=== PATIENT | female | born 1940 | race Caucasian/White ===

== ENCOUNTER 2016-12-11 11:47 | Inpatient (IN) | payer MEDICARE ==
[2016-12-11 12:46] LABS: Basophils # (A) 0.1 k/uL (0-0.2); Basophils % (A) 0 %; CHCM 33.4; Eosinophils # (A) 0.1 k/uL (0-0.7); Eosinophils % (A) 1 %; HCT 43.3 % (34.0-46.0); HDW 2.22; HGB 13.7 gm/dL (11.4-16.0); Luc % (Auto) 1; Lymphocytes # (A) 1.3 k/uL (1.0-4.8); Lymphocytes % (A) 11 %; MCH 30.4 pg (25.0-35.0); MCHC 31.6 g/dL (31.0-37.0); MCV 96.4 fL (80.0-100.0); Mean Platelet Volume 7.9; Monocytes # (A) 0.6 k/uL (0-1.0); Monocytes % (A) 5 %; Neutrophils % (A) 83 %; RBC 4.49 m/uL (3.80-5.40); RDW 13.3 % (11.5-15.5)
[2016-12-11 12:56] LABS: ALT 90 U/L (9-52); AST 69 U/L (14-36); Alkaline Phosphatase 71 U/L (38-126); Anion Gap 12 mmol/L; Blood Urea Nitrogen 26 mg/dL (7-17); Calcium 9.7 mg/dL (8.4-10.2); Carbon Dioxide 25 mmol/L (22-30); Chloride 106 mmol/L (98-107); Glucose 163 mg/dL (74-99); Magnesium 1.9 mg/dL (1.6-2.3); Non-African American GFR(MDRD) >60 (>60 ml/min/1.73 sqM); Sodium 143 mmol/L (137-145); Total Bilirubin 0.9 mg/dL (0.2-1.3); Total Protein 6.5 g/dL (6.3-8.2)
[2016-12-11 13:01] LABS: INR 1.1 (<1.1); Partial Thromboplastin Time 21.7 sec (22.0-30.0); Prothrombin Time 11.4 sec (9.0-12.0)
--- NOTE | 2016-12-11 13:02 | XR ---
EXAMINATION TYPE: XR chest 1V portable DATE OF EXAM: 12/11/2016 12:57 PM COMPARISON: NONE HISTORY: Dysrhythmia TECHNIQUE: Single frontal view of the chest is obtained. FINDINGS: There is no focal air space opacity, pleural effusion, or pneumothorax seen. The cardiac silhouette size is within normal limits. The osseous structures are intact. The heart is enlarged. IMPRESSION: 1. Cardiomegaly. Subsegmental changes at the right lung base may be technical. Short-term follow-up P A and lateral views the chest could be obtained to exclude infiltrate.
[2016-12-11 13:21] LABS: Creatine Kinase MB 1.5 ng/mL (0.0-2.4)
[2016-12-11 13:38] LABS: Troponin I 0.15 ng/mL (0.000-0.034)
[2016-12-11] MEDS ORDERED: NITROGLYCERIN SL TABS 0.4 MG TAB SUBLINGUAL PRN (14:52)
--- NOTE | 2016-12-11 14:52 | ED ---
Arrhythmia/Palpitations HPI - General Chief Complaint: Arrhythmia/Palpitations Stated Complaint: abn ekg Time Seen by Provider: 12/11/16 11:58 Source: patient, family, RN notes reviewed Mode of arrival: wheelchair Limitations: no limitations - History of Present Illness Initial Comments: This patient is 76-year-old woman who presents with complaint of dyspnea that is been getting worse over a number of days. Patient is planning a trip to [place] and states that her finally convinced her to see their physician before going. In the clinic the patient had an EKG that reported to show atrial fibrillation. The patient has felt that times that her heart was beating rapidly. Patient is denying chest pain here. MD Complaint: rapid heart beat -: days(s) Context: occurred during rest Arrhythmia History: other (None) Associated Symptoms: shortness of breath - Related Data Home Medications Medication Instructions Recorded Confirmed Alendronate Sodium 70 mg PO TU 12/11/16 12/11/16 Atorvastatin Calcium [Lipitor] 10 mg PO DAILY 12/11/16 12/11/16 Calcium Carbonate [Calcium] 600 mg PO DAILY 12/11/16 12/11/16 Cholecalciferol [Vitamin D3] 1,000 unit PO DAILY 12/11/16 12/11/16 Meloxicam 15 mg PO DAILY 12/11/16 12/11/16 Nystatin 100,000Unit/gm Cream 1 applic TOPICAL BID PRN 12/11/16 12/11/16 [Mycostatin Cream] Olmesartan/Hydrochlorothiazide 1 tab PO DAILY 12/11/16 12/11/16 [Benicar Hct 20-12.5 mg Tablet] Scopolamine 1.5MG/72Hr Patch 1 patch TRANSDERM Q72H 12/11/16 12/11/16 [Transderm-Scop 1.5MG/72Hr Patch] Vit A,C & G-Devlnc-Hsknbugg [Ivite] 1 tab PO DAILY 12/11/16 12/11/16 Allergies Allergy/AdvReac Type Severity Reaction Status Date / Time monosodium glutamate [MSG] Allergy Unknown Verified 12/11/16 12:47 Penicillins Allergy Anaphylaxis Verified 12/11/16 12:47 Sulfa (Sulfonamide Allergy Anaphylaxis Verified 12/11/16 12:47 Antibiotics) Review of Systems ROS Statement: Those systems with pertinent positive or pertinent negative responses have been documented in the HPI. ROS Other: All systems not noted in ROS Statement are negative. Constitutional: Reports: weakness. Denies: fever, chills Respiratory: Reports: dyspnea. Denies: cough, wheezes Cardiovascular: Reports: palpitations, dyspnea on exertion, orthopnea, edema. Denies: chest pain, syncope Gastrointestinal: Denies: abdominal pain, nausea, vomiting Genitourinary: Denies: dysuria, hematuria Musculoskeletal: Denies: back pain Skin: Denies: rash Neurological: Denies: headache, weakness, numbness Past Medical History Past Medical History: Hypertension History of Any Multi-Drug Resistant Organisms: None Reported Past Surgical History: Back Surgery, Joint Replacement Additional Past Surgical History / Comment(s): knee replacement Past Psychological History: No Psychological Hx Reported Smoking Status: Never smoker Past Alcohol Use History: Occasional Past Drug Use History: None Reported - Past Family History Father Family Medical History: Myocardial Infarction ([place]) Additional Family Medical History / Comment(s): Lung cancer, Lymphoma, Mother Family Medical History: Congestive Heart Failure (CHF) General Exam Limitations: no limitations General appearance: alert, in no apparent distress Head exam: Present: atraumatic, normocephalic Eye exam: Present: normal appearance. Absent: scleral icterus, conjunctival injection ENT exam: Present: normal oropharynx Neck exam: Present: normal inspection Respiratory exam: Present: rales (Bilateral bases). Absent: respiratory distress, wheezes, rhonchi, stridor, chest wall tenderness Cardiovascular Exam: Present: normal rhythm, tachycardia, normal heart sounds. Absent: systolic murmur, diastolic murmur, rubs, gallop GI/Abdominal exam: Present: soft. Absent: distended, tenderness, guarding, rebound, rigid, pulsatile mass Extremities exam: Present: normal capillary refill, pedal edema. Absent: normal inspection, calf tenderness Back exam: Present: normal inspection. Absent: CVA tenderness (R), CVA tenderness (L) Neurological exam: Present: alert Skin exam: Present: warm, dry, intact, normal color. Absent: rash Course Vital Signs 12/11/16 12/11/16 12/11/16 11:52 13:02 13:32 Temperature 98.9 F Pulse Rate 109 H 96 94 Pulse Rate [ Pulse Oximetery ] Respiratory 18 18 18 Rate Blood Pressure 143/83 139/74 138/69 Blood Pressure [Left Arm] O2 Sat by Pulse 89 L 96 96 Oximetry 12/11/16 12/11/16 12/11/16 14:02 14:47 15:02 Temperature Pulse Rate 94 94 94 Pulse Rate [ Pulse Oximetery ] Respiratory 18 18 18 Rate Blood Pressure 123/82 147/73 130/80 Blood Pressure [Left Arm] O2 Sat by Pulse 96 96 96 Oximetry 12/11/16 12/11/16 12/11/16 16:00 17:00 17:34 Temperature Pulse Rate 92 98 Pulse Rate [ 109 H Pulse Oximetery ] Respiratory 18 18 16 Rate Blood Pressure 135/84 149/79 Blood Pressure 148/84 [Left Arm] O2 Sat by Pulse 97 94 L 95 Oximetry 12/11/16 17:47 Temperature 98 F Pulse Rate 97 Pulse Rate [ Pulse Oximetery ] Respiratory 18 Rate Blood Pressure 139/81 Blood Pressure [Left Arm] O2 Sat by Pulse 95 Oximetry EKG Findings - EKG Comments: EKG Findings:: The patient's underlying rhythm appears to be an atrial tachycardia with some sinus arrhythmia and PVC rate approximately 109. - EKG Results: EKG: interpreted by ERMD, normal axis (Normal), normal QRS (Normal) - Blocks, [place], Hypertrophy, ST Abn: Repolarization changes or abnormalities: ST or T wave suggestive of ischemia ( There are T inversions in the inferolateral leads.) Medical Decision Making - Medical Decision Making Patient is a 76-year-old woman sent from her primary physician's office to be evaluated further for dyspnea and some EKG changes. She is carrying an EKG from the clinic that shows an atrial tachycardia which does have some P waves of different morphologies the rate is approximately 112 bpm. There are T inversions in the inferior and lateral leads. The patient was told that the EKG in the clinic showed atrial fibrillation. Workup here in the emergency department reveals minimally elevated troponin. Patient's case discussed with her physician Dr. Pena, who will admit the patient with cardiology consultation. - Lab Data Result diagrams: 12/11/16 12:28 12/11/16 12:28 Lab Results 12/11/16 12/11/16 12/11/16 Range/Units 12:28 12:28 12:28 WBC 12.0 H (3.8-10.6) k/uL RBC 4.49 (3.80-5.40) m/uL Hgb 13.7 (11.4-16.0) gm/dL Hct 43.3 (34.0-46.0) % MCV 96.4 (80.0-100.0) fL MCH 30.4 (25.0-35.0) pg MCHC 31.6 (31.0-37.0) g/dL RDW 13.3 (11.5-15.5) % Plt Count 136 L (150-450) k/uL Neutrophils % 83 % Lymphocytes % 11 % Monocytes % 5 % Eosinophils % 1 % Basophils % 0 % Neutrophils # 10.0 H (1.3-7.7) k/uL Lymphocytes # 1.3 (1.0-4.8) k/uL Monocytes # 0.6 (0-1.0) k/uL Eosinophils # 0.1 (0-0.7) k/uL Basophils # 0.1 (0-0.2) k/uL PT (9.0-12.0) sec INR (<1.1) APTT (22.0-30.0) sec Sodium 143 (137-145) mmol/L Potassium 4.0 (3.5-5.1) mmol/L Chloride 106 (98-107) mmol/L Carbon Dioxide 25 (22-30) mmol/L Anion Gap 12 mmol/L BUN 26 H (7-17) mg/dL Creatinine 0.88 (0.52-1.04) mg/dL Est GFR (MDRD) Af Amer >60 (>60 ml/min/1.73 sqM) Est GFR (MDRD) Non-Af >60 (>60 ml/min/1.73 sqM) Glucose 163 H (74-99) mg/dL Calcium 9.7 (8.4-10.2) mg/dL Magnesium 1.9 (1.6-2.3) mg/dL Total Bilirubin 0.9 (0.2-1.3) mg/dL AST 69 H (14-36) U/L ALT 90 H (9-52) U/L Alkaline Phosphatase 71 (38-126) U/L Total Creatine Kinase 47 (30-135) U/L CK-MB (CK-2) 1.5 (0.0-2.4) ng/mL CK-MB (CK-2) Rel Index 3.2 Troponin I 0.150 H* (0.000-0.034) ng/mL NT-Pro-B Natriuret Pep pg/mL Total Protein 6.5 (6.3-8.2) g/dL Albumin 3.8 (3.5-5.0) g/dL 12/11/16 12/11/16 Range/Units 12:28 12:28 WBC (3.8-10.6) k/uL RBC (3.80-5.40) m/uL Hgb (11.4-16.0) gm/dL Hct (34.0-46.0) % MCV (80.0-100.0) fL MCH (25.0-35.0) pg MCHC (31.0-37.0) g/dL RDW (11.5-15.5) % Plt Count (150-450) k/uL Neutrophils % % Lymphocytes % % Monocytes % % Eosinophils % % Basophils % % Neutrophils # (1.3-7.7) k/uL Lymphocytes # (1.0-4.8) k/uL Monocytes # (0-1.0) k/uL Eosinophils # (0-0.7) k/uL Basophils # (0-0.2) k/uL PT 11.4 (9.0-12.0) sec INR 1.1 (<1.1) APTT 21.7 L (22.0-30.0) sec Sodium (137-145) mmol/L Potassium (3.5-5.1) mmol/L Chloride (98-107) mmol/L Carbon Dioxide (22-30) mmol/L Anion Gap mmol/L BUN (7-17) mg/dL Creatinine (0.52-1.04) mg/dL Est GFR (MDRD) Af Amer (>60 ml/min/1.73 sqM) Est GFR (MDRD) Non-Af (>60 ml/min/1.73 sqM) Glucose (74-99) mg/dL Calcium (8.4-10.2) mg/dL Magnesium (1.6-2.3) mg/dL Total Bilirubin (0.2-1.3) mg/dL AST (14-36) U/L ALT (9-52) U/L Alkaline Phosphatase (38-126) U/L Total Creatine Kinase (30-135) U/L CK-MB (CK-2) (0.0-2.4) ng/mL CK-MB (CK-2) Rel Index Troponin I (0.000-0.034) ng/mL NT-Pro-B Natriuret Pep 4590 pg/mL Total Protein (6.3-8.2) g/dL Albumin (3.5-5.0) g/dL Disposition Clinical Impression: Atrial fibrillation, Elevated troponin I level Disposition: ADMITTED IP TO THIS HOSP Condition: Fair
[2016-12-11] MEDS ORDERED: IBUPROFEN 600 MG TAB PO STA (14:55)
[2016-12-11 19:51] LABS: Creatine Kinase MB 1.4 ng/mL (0.0-2.4); Troponin I 0.133 ng/mL (0.000-0.034)
[2016-12-11] MEDS: ENOXAPARIN 120 MG/0.8 ML SYRINGE SQ SCH (21:44)
[2016-12-12] MEDS ORDERED: RX INFO: IV CONTRAST WAS GIVEN 1 EACH MISC MISCELLANE PRN (00:34)
--- NOTE | 2016-12-12 01:26 | CT ---
EXAMINATION TYPE: CT chest angio for PE DATE OF EXAM: 12/12/2016 1:18 AM COMPARISON: NONE HISTORY: elevated d-dimer R/O PE CT DLP: 683.00 mGycm Automated exposure control for dose reduction was used. CONTRAST: CT Chest for pulmonary embolism performed with with IV Contrast, patient injected with 100 mL of Omni paque 350. FINDINGS: There are 3-D post processed images. The lungs are clear of consolidation. Heart is enlarged. There is mild pleural thickening at the left posterior lung base. There is no pericardial effusion. There are large filling defects in the left and right pulmonary arteries involving mainly the lower l obe branches. Thoracic aorta is atheromatous without evidence of aneurysm or dissection. There are sp ondylotic changes in the thoracic spine. IMPRESSION: Numerous large bilateral pulmonary emboli. Minimal pleural reaction at the left posterior lung base.
[2016-12-12 01:29] LABS: Creatine Kinase MB 1.8 ng/mL (0.0-2.4)
[2016-12-12 01:32] LABS: Troponin I 0.123 ng/mL (0.000-0.034)
[2016-12-12] MEDS: SODIUM CHLORIDE 0.9% 1,000 ML IV SCH ×2 (04:57→23:19)
[2016-12-12 06:54] LABS: Cholesterol 153 mg/dL (<200); HDL Cholesterol 60 mg/dL (40-60); Triglycerides 105 mg/dL (<150)
[2016-12-12] MEDS: ASPIRIN 325 MG TAB PO SCH (09:07)
[2016-12-12] MEDS: ENOXAPARIN 120 MG/0.8 ML SYRINGE SQ SCH ×2 (09:07→23:18)
[2016-12-12] MEDS ORDERED: NYSTATIN 100,000UNIT/GM CREAM 30 GM TUBE TOPICAL PRN (11:38)
--- NOTE | 2016-12-12 11:59 | P.HPIM ---
History of Present Illness H&P Date: 12/12/16 Chief Complaint: Worsening shortness of breath Patient is a 76-year-old female who presented to the office on 12/11/2016 with a chief complaint of worsening shortness of breath evaluation in the office revealed evidence of atrial fibrillation with rapid ventricular response which is new to patient she was sent to [facility] emergency room where she was evaluated and was admitted to telemetry floor she was started on subcu Lovenox 1 mg/kg twice daily she was also started on oral Cardizem heart rate was well controlled and actually patient converted to normal sinus rhythm spontaneously however her shortness of breath continued to worsen at that time she had a d-dimer drawn and it was up to 13 computed tomography scan of the chest with contrast was done and was positive for bilateral pulmonary embolism she was continued on Lovenox. Patient denies any previous history of DVT or pulmonary embolism. She denies any recent travel or orthopedic surgery or prolonged immobility. Review of Systems Cardiovascular: Reports dyspnea on exertion Past Medical History Past Medical History: Hypertension History of Any Multi-Drug Resistant Organisms: None Reported Past Surgical History: Back Surgery, Joint Replacement Additional Past Surgical History / Comment(s): knee replacement Past Psychological History: No Psychological Hx Reported Smoking Status: Never smoker Past Alcohol Use History: Occasional Past Drug Use History: None Reported - Past Family History Father Family Medical History: Myocardial Infarction ([place]) Additional Family Medical History / Comment(s): Lung cancer, Lymphoma, Mother Family Medical History: Congestive Heart Failure (CHF) Medications and Allergies Home Medications Medication Instructions Recorded Confirmed Type Alendronate Sodium 70 mg PO TU 12/11/16 12/11/16 History Atorvastatin Calcium [Lipitor] 10 mg PO DAILY 12/11/16 12/11/16 History Calcium Carbonate [Calcium] 600 mg PO DAILY 12/11/16 12/11/16 History Cholecalciferol [Vitamin D3] 1,000 unit PO DAILY 12/11/16 12/11/16 History Meloxicam 15 mg PO DAILY 12/11/16 12/11/16 History Nystatin 100,000Unit/gm Cream 1 applic TOPICAL BID PRN 12/11/16 12/11/16 History [Mycostatin Cream] Olmesartan/Hydrochlorothiazide 1 tab PO DAILY 12/11/16 12/11/16 History [Benicar Hct 20-12.5 mg Tablet] Scopolamine 1.5MG/72Hr Patch 1 patch TRANSDERM Q72H 12/11/16 12/11/16 History [Transderm-Scop 1.5MG/72Hr Patch] Vit A,C & R-Cwjmqm-Nsgcjvds [Ivite] 1 tab PO DAILY 12/11/16 12/11/16 History Allergies Allergy/AdvReac Type Severity Reaction Status Date / Time monosodium glutamate [MSG] Allergy Unknown Verified 12/11/16 12:47 Penicillins Allergy Anaphylaxis Verified 12/11/16 12:47 Sulfa (Sulfonamide Allergy Anaphylaxis Verified 12/11/16 12:47 Antibiotics) Physical Exam Vitals: Vital Signs Temp Pulse Pulse Pulse Resp BP BP 12/12/16 08:00 99 F 87 16 125/81 12/12/16 04:00 99.1 F 95 18 135/87 12/12/16 00:00 98.2 F 118 H 18 149/75 12/11/16 20:00 99 F 86 18 135/85 12/11/16 18:19 109 H 18 12/11/16 18:08 97 F L 106 H 20 148/84 12/11/16 17:47 98 F 97 18 139/81 12/11/16 17:34 109 H 16 148/84 12/11/16 17:00 98 18 149/79 12/11/16 16:00 92 18 135/84 12/11/16 15:02 94 18 130/80 Pulse Ox 12/12/16 08:00 95 12/12/16 04:00 95 12/12/16 00:00 95 12/11/16 20:00 95 12/11/16 18:19 12/11/16 18:08 98 12/11/16 17:47 95 12/11/16 17:34 95 12/11/16 17:00 94 L 12/11/16 16:00 97 12/11/16 15:02 96 Intake and Output 12/11/16 12/12/16 12/12/16 22:59 06:59 14:59 Intake Total 400 Output Total 150 350 Balance -150 400 -350 Intake: Intake, IV Titration 400 Amount Sodium Chloride 0.9% 1, 400 000 ml @ 20 mls/hr IV . Q24H [facility] Rx#:[id number] Output: Urine 150 350 Other: Voiding Method Toilet Toilet Bedside Commode Bedside Commode # Voids 1 1 Weight 114 kg In general patient is alert and oriented 3 in no apparent distress answering questions appropriately HEENT head normocephalic and atraumatic Neck is supple no JVD no goiter no lymphadenopathy Chest exam reveals a few scattered crackles in both lung torres no wheezing Cardiac exam reveals irregular heart sounds S1 and S2 no gallops no murmurs Abdomen is soft nontender no organomegaly with normal bowel sounds Extremity exam reveals minimal edema bilaterally no cyanosis or clubbing Neurological examination reveals no gross focal deficits Results CBC & Chem 7: 12/11/16 12:28 12/11/16 12:28 Labs: Abnormal Lab Results - Last 24 Hours (Table) 12/11/16 12/11/16 12/12/16 Range/Units 18:35 19:16 00:29 D-Dimer 13.36 H (<0.60) mg/L FEU Troponin I 0.133 H* 0.123 H* (0.000-0.034) ng/mL Thrombosis Risk Factor Assmnt - Choose All That Apply Each Factor Represents 1 point: Obesity (BMI >25), Swollen legs (current) Each Risk Factor Represents 3 Points: Age 75 years or older Thrombosis Risk Factor Assessment Total Risk Factor Score: 5 Thrombosis Risk Factor Assessment Level: High Risk Assessment and Plan Plan: #1 new onset atrial fibrillation with rapid ventricular response #2 bilateral pulmonary embolism #3 known history of hypertension #4 morbid obesity #5 mildly elevated troponin levels Plan at this time to continue with Cardizem continue with Lovenox. Start on oral anticoagulation Pulmonary and cardiology consultation were requested
[2016-12-12] MEDS: ATORVASTATIN 10 MG TAB PO SCH (13:21)
[2016-12-12] MEDS: HYDROCHLOROTHIAZIDE 12.5 MG CAP PO SCH (13:22)
[2016-12-12] MEDS: LOSARTAN 50 MG TAB PO SCH (13:23)
[2016-12-12] MEDS: MELOXICAM 7.5 MG TAB PO SCH (13:24)
[2016-12-12] MEDS: VIT A,C & E-LUTEIN-MINERALS 1 EACH TAB PO SCH (13:25)
[2016-12-12] MEDS: DILTIAZEM CD 120 MG CAP.ER.24H PO SCH (13:28)
--- NOTE | 2016-12-12 15:36 | US ---
EXAMINATION TYPE: US venous doppler duplex LE DATE OF EXAM: 12/12/2016 3:29 PM COMPARISON: NONE CLINICAL HISTORY: DVT. HX PE SIDE PERFORMED: Bilateral VESSELS IMAGED: External Iliac Vein (EIV) Common Femoral Vein Deep Femoral Vein Greater Saphenous Vein * Femoral Vein Popliteal Vein Small Saphenous Vein * Proximal Calf Veins (* superficial vessels) TECHNOLOGIST IMPRESSION: Limited exam due to pt body habitus. Appears to have only partial compressi on and no color flow from right mid pop v to prox calf veins. Right Leg: Positive for DVT; Pop v mid to Prox calf veins Left Leg: Negative for DVT IMPRESSION: No venous flow is demonstrated in the popliteal vein consistent with acute deep venous t hrombosis in the right leg. No evidence of deep venous thrombosis in the left leg.
[2016-12-13 06:45] LABS: Basophils # (A) 0.1 k/uL (0-0.2); Basophils % (A) 1 %; CH 31.6; Eosinophils # (A) 0.3 k/uL (0-0.7); Eosinophils % (A) 3 %; HCT 41.1 % (34.0-46.0); HDW 2.17; HGB 13.2 gm/dL (11.4-16.0); Luc # (Auto) 0.18; Luc % (Auto) 2; Lymphocytes # (A) 1.8 k/uL (1.0-4.8); Lymphocytes % (A) 18 %; MCH 31.9 pg (25.0-35.0); MCHC 32.2 g/dL (31.0-37.0); Mean Platelet Volume 7.4; Monocytes # (A) 0.5 k/uL (0-1.0); Monocytes % (A) 5 %; Neutrophils # (A) 7.5 k/uL (1.3-7.7); Neutrophils % (A) 72 %; RBC 4.15 m/uL (3.80-5.40); RDW 13.5 % (11.5-15.5); WBC 10.3 k/uL (3.8-10.6); WBC (Perox) 11.15
[2016-12-13 06:57] LABS: ALT 84 U/L (9-52); AST 43 U/L (14-36); Alkaline Phosphatase 74 U/L (38-126); Anion Gap 9 mmol/L; Blood Urea Nitrogen 20 mg/dL (7-17); Calcium 8.9 mg/dL (8.4-10.2); Carbon Dioxide 27 mmol/L (22-30); Chloride 105 mmol/L (98-107); Glucose 113 mg/dL (74-99); Non-African American GFR(MDRD) >60 (>60 ml/min/1.73 sqM); Sodium 141 mmol/L (137-145); Total Bilirubin 0.8 mg/dL (0.2-1.3); Total Protein 5.9 g/dL (6.3-8.2)
[2016-12-13] MEDS: DILTIAZEM CD 120 MG CAP.ER.24H PO SCH (09:13)
[2016-12-13] MEDS: CHOLECALCIFEROL 1,000 UNIT TAB PO SCH (09:13)
[2016-12-13] MEDS: ASPIRIN 325 MG TAB PO SCH (09:13)
[2016-12-13] MEDS: ENOXAPARIN 120 MG/0.8 ML SYRINGE SQ SCH (09:13)
[2016-12-13] MEDS: VIT A,C & E-LUTEIN-MINERALS 1 EACH TAB PO SCH (09:13)
[2016-12-13] MEDS: ATORVASTATIN 10 MG TAB PO SCH (09:14)
[2016-12-13] MEDS: LOSARTAN 50 MG TAB PO SCH (09:14)
[2016-12-13] MEDS: MELOXICAM 7.5 MG TAB PO SCH (09:14)
[2016-12-13] MEDS: HYDROCHLOROTHIAZIDE 12.5 MG CAP PO SCH (09:14)
[2016-12-13] MEDS: CALCIUM CARBONATE 500 MG CHEWABLE PO SCH (09:14)
[2016-12-13] MEDS ORDERED: HEPARIN SODIUM,PORCINE 5,000 UNIT/ML 1 ML VIAL IV PRN (09:49)
--- NOTE | 2016-12-13 09:49 | P.CRDCN ---
<Stephanie Arnett E - Last Filed: 12/13/16 09:39> History of Present Illness Consult date: 12/13/16 Requesting physician: Mae Pena Consult reason: atrial fibrillation Chief complaint: Shortness of breath History of present illness: This is a 76-year-old female with history of hypertension, endometrial cancer, who was admitted from Dr. Subramanian's office. She states that since Tuesday of last week she has been progressively more and more short of breath. Patient states she's been working out at the [facility] in preparation to go on vacation. They were scheduled to leave for the [facility] tomorrow. Because of the persistence in shortness of breath, patient went to see Dr. Pena in his office. An EKG was performed there which the computer interpreted to be atrial fibrillation, upon review of that EKG, it appears to be a sinus rhythm with PACs. EKG on arrival here showed a sinus tachycardia with occasional PVC and PAC, subsequent EKG performed yesterday morning also showed a normal sinus rhythm with occasional PVC. This morning patient continues to be in normal sinus rhythm. Because of the questionable atrial fibrillation on the office EKG patient was referred for admission. Chest x-ray on admission here showed cardiomegaly with no acute change. CTA of the chest was performed which was positive for large filling defects in the left and right pulmonary arteries involving mainly the lower lobe branches. Numerous large bilateral pulmonary embolism. Venous duplex study was performed which was positive for DVT in the right leg. Patient was initiated on Lovenox in the emergency room. Blood pressure on arrival 142/82, 89% on room air. Heart rate 110. Laboratory data, WBC 12.0, d-dimer 13.36, troponin 0.15, 0.13, 0.12. BNP level 4590. Abnormality in d-dimer, troponin, and BNP, all consistent with submassive pulmonary embolism. Past Medical History Past Medical History: Hypertension History of Any Multi-Drug Resistant Organisms: None Reported Past Surgical History: Back Surgery, Joint Replacement Additional Past Surgical History / Comment(s): knee replacement Past Psychological History: No Psychological Hx Reported Smoking Status: Never smoker Past Alcohol Use History: Occasional Past Drug Use History: None Reported - Past Family History Father Family Medical History: Myocardial Infarction ([place]) Additional Family Medical History / Comment(s): Lung cancer, Lymphoma, Mother Family Medical History: Congestive Heart Failure (CHF) Medications and Allergies Home Medications Medication Instructions Recorded Confirmed Type Alendronate Sodium 70 mg PO TU 12/11/16 12/11/16 History Atorvastatin Calcium [Lipitor] 10 mg PO DAILY 12/11/16 12/11/16 History Calcium Carbonate [Calcium] 600 mg PO DAILY 12/11/16 12/11/16 History Cholecalciferol [Vitamin D3] 1,000 unit PO DAILY 12/11/16 12/11/16 History Meloxicam 15 mg PO DAILY 12/11/16 12/11/16 History Nystatin 100,000Unit/gm Cream 1 applic TOPICAL BID PRN 12/11/16 12/11/16 History [Mycostatin Cream] Olmesartan/Hydrochlorothiazide 1 tab PO DAILY 12/11/16 12/11/16 History [Benicar Hct 20-12.5 mg Tablet] Scopolamine 1.5MG/72Hr Patch 1 patch TRANSDERM Q72H 12/11/16 12/11/16 History [Transderm-Scop 1.5MG/72Hr Patch] Vit A,C & N-Flubkf-Hhijjosv [Ivite] 1 tab PO DAILY 12/11/16 12/11/16 History Allergies Allergy/AdvReac Type Severity Reaction Status Date / Time monosodium glutamate [MSG] Allergy Unknown Verified 12/11/16 12:47 Penicillins Allergy Anaphylaxis Verified 12/11/16 12:47 Sulfa (Sulfonamide Allergy Anaphylaxis Verified 12/11/16 12:47 Antibiotics) Physical Exam Vitals: Vital Signs Temp Pulse Pulse Resp BP Pulse Ox 12/13/16 09:17 97.6 F 83 79 18 133/79 93 L 12/13/16 04:00 97.1 F L 83 91 18 127/77 95 12/13/16 00:00 98.3 F 83 83 16 136/94 96 12/12/16 20:00 98.3 F 87 18 130/81 12/12/16 16:00 91 18 141/82 96 12/12/16 14:52 94 L 12/12/16 12:00 87 90 16 128/79 96 Intake and Output 12/12/16 12/13/16 12/13/16 22:59 06:59 14:59 Intake Total 180 Output Total 800 2350 Balance -800 -2350 180 Intake: Oral 180 Output: Urine 800 2350 Other: Voiding Method Toilet Toilet Toilet Bedside Commode Bedside Commode Bedside Commode # Voids 1 1 # Bowel Movements 1 1 Weight 114 kg 114.6 kg PHYSICAL EXAMINATION: HEENT: Head is atraumatic, normocephalic. Pupils equal, round. Neck is supple. There is elevated jugular venous pressure. HEART EXAMINATION: Heart S1 and S2 systolic murmur is heard. CHEST EXAMINATION: Lungs are clear with diminished air entry to bilateral bases. ABDOMEN: Soft, obese, nontender. Bowel sounds are heard. No organomegaly noted. EXTREMITIES: 2+ peripheral pulses with trace evidence of peripheral edema and no calf tenderness noted. NEUROLOGIC patient is awake, alert and oriented -3. . Results 12/13/16 06:27 12/13/16 06:24 Cardiac Enzymes 12/13/16 Range/Units 06:24 AST 43 H (14-36) U/L CBC 12/13/16 Range/Units 06:27 WBC 10.3 (3.8-10.6) k/uL RBC 4.15 (3.80-5.40) m/uL Hgb 13.2 (11.4-16.0) gm/dL Hct 41.1 (34.0-46.0) % Plt Count 135 L (150-450) k/uL Comprehensive Metabolic Panel 12/13/16 Range/Units 06:24 Sodium 141 (137-145) mmol/L Potassium 4.0 (3.5-5.1) mmol/L Chloride 105 (98-107) mmol/L Carbon Dioxide 27 (22-30) mmol/L BUN 20 H (7-17) mg/dL Creatinine 0.80 (0.52-1.04) mg/dL Glucose 113 H (74-99) mg/dL Calcium 8.9 (8.4-10.2) mg/dL AST 43 H (14-36) U/L ALT 84 H (9-52) U/L Alkaline Phosphatase 74 (38-126) U/L Total Protein 5.9 L (6.3-8.2) g/dL Albumin 3.4 L (3.5-5.0) g/dL Current Medications Generic Name Dose Route Start Last Admin Trade Name Freq PRN Reason Stop Dose Admin Aspirin 325 mg 12/12/16 09:00 12/13/16 09:13 Aspirin PO 325 mg DAILY RAND Administration Atorvastatin Calcium 10 mg 12/12/16 11:45 12/13/16 09:14 Lipitor PO 10 mg DAILY RAND Administration Calcium Carbonate/Glycine 500 mg 12/13/16 12:00 12/13/16 09:14 Tums PO 500 mg DAILY@1200 RAND Administration Cholecalciferol 1,000 unit 12/13/16 12:00 12/13/16 09:13 Vitamin D3 PO 1,000 unit DAILY@1200 RAND Administration Diltiazem HCl 120 mg 12/12/16 12:00 12/13/16 09:13 Cardizem Cd PO 120 mg DAILY RAND Administration Enoxaparin Sodium 110 mg 12/11/16 21:00 12/13/16 09:13 Lovenox SQ 110 mg Q12HR RAND Administration Hydrochlorothiazide 12.5 mg 12/12/16 11:45 12/13/16 09:14 Hydrodiuril PO 12.5 mg DAILY RAND Administration Sodium Chloride 1,000 mls @ 20 mls/hr 12/11/16 15:00 12/12/16 23:19 Saline 0.9% IV 20 mls/hr .Q24H RAND Administration Losartan Potassium 100 mg 12/12/16 11:45 12/13/16 09:14 Cozaar PO 100 mg DAILY RAND Administration Meloxicam 15 mg 12/12/16 11:45 12/13/16 09:14 Mobic PO 15 mg DAILY RAND Administration Miscellaneous Information 1 each 12/12/16 00:34 Rx Info: Iv Contrast Was Given MISCELLANE 12/14/16 00:35 DAILY PRN Per Protocol Multivitamins/Minerals 1 each 12/12/16 11:45 12/13/16 09:13 Ivite PO 1 each DAILY [facility] Administration Nitroglycerin 0.4 mg 12/11/16 14:52 Nitrostat SUBLINGUAL Q5M PRN Chest Pain Nystatin 1 applic 12/12/16 11:38 Mycostatin Cream TOPICAL BID PRN Rash Intake and Output 12/12/16 12/13/16 12/13/16 22:59 06:59 14:59 Intake Total 180 Output Total 800 2350 Balance -800 -2350 180 Intake: Oral 180 Output: Urine 800 2350 Other: Voiding Method Toilet Toilet Toilet Bedside Commode Bedside Commode Bedside Commode # Voids 1 1 # Bowel Movements 1 1 Weight 114 kg 114.6 kg 12/13/16 06:27 12/13/16 06:24 EKG Interpretations (text) EKG shows sinus tachycardia with occasional PACs and PVCs Assessment and Plan Plan: Assessment and plan #1 bilateral pulmonary embolism, abnormal BNP, troponin, consistent with submassive PE. #2 sinus tachycardia #3 hypertension #4 history of endometrial cancer #5 obesity #6 hyperlipidemia Plan We will discontinue the Lovenox and initiate IV heparin. We will also check to see if the patient has coverage for xarelto, if so we'll consider initiating Xarelto tomorrow per PE protocol. We will also obtain an echocardiogram with Doppler study. Further recommendations to follow. DNP note has been reviewed, I agree with a documented findings and plan of care. Patient was seen and examined. <Robert York - Last Filed: 12/13/16 12:33> Physical Exam Vitals: Vital Signs Temp Pulse Pulse Resp BP Pulse Ox 12/13/16 12:08 97.7 F 83 85 18 133/76 92 L 12/13/16 09:17 97.6 F 83 79 18 133/79 93 L 12/13/16 04:00 97.1 F L 83 91 18 127/77 95 12/13/16 00:00 98.3 F 83 83 16 136/94 96 12/12/16 20:00 98.3 F 87 18 130/81 12/12/16 16:00 91 18 141/82 96 12/12/16 14:52 94 L Intake and Output 12/12/16 12/13/16 12/13/16 22:59 06:59 14:59 Intake Total 180 Output Total 800 2350 350 Balance -800 -2350 -170 Intake: Oral 180 Output: Urine 800 2350 350 Other: Voiding Method Toilet Toilet Toilet Bedside Commode Bedside Commode Bedside Commode # Voids 1 1 # Bowel Movements 1 1 Weight 114 kg 114.6 kg Results 12/13/16 10:15 12/13/16 06:24 Cardiac Enzymes 12/13/16 Range/Units 06:24 AST 43 H (14-36) U/L Coagulation 12/13/16 Range/Units 10:15 PT 11.7 (9.0-12.0) sec APTT 27.0 (22.0-30.0) sec CBC 12/13/16 12/13/16 Range/Units 06:27 10:15 WBC 10.3 10.8 H (3.8-10.6) k/uL RBC 4.15 4.09 (3.80-5.40) m/uL Hgb 13.2 13.0 (11.4-16.0) gm/dL Hct 41.1 40.5 (34.0-46.0) % Plt Count 135 L 128 L (150-450) k/uL Comprehensive Metabolic Panel 12/13/16 Range/Units 06:24 Sodium 141 (137-145) mmol/L Potassium 4.0 (3.5-5.1) mmol/L Chloride 105 (98-107) mmol/L Carbon Dioxide 27 (22-30) mmol/L BUN 20 H (7-17) mg/dL Creatinine 0.80 (0.52-1.04) mg/dL Glucose 113 H (74-99) mg/dL Calcium 8.9 (8.4-10.2) mg/dL AST 43 H (14-36) U/L ALT 84 H (9-52) U/L Alkaline Phosphatase 74 (38-126) U/L Total Protein 5.9 L (6.3-8.2) g/dL Albumin 3.4 L (3.5-5.0) g/dL Current Medications Generic Name Dose Route Start Last Admin Trade Name Freq PRN Reason Stop Dose Admin Aspirin 325 mg 12/12/16 09:00 12/13/16 09:13 Aspirin PO 325 mg DAILY [facility] Administration Atorvastatin Calcium 10 mg 12/12/16 11:45 12/13/16 09:14 Lipitor PO 10 mg DAILY [facility] Administration Calcium Carbonate/Glycine 500 mg 12/13/16 12:00 12/13/16 09:14 Tums PO 500 mg DAILY@1200 [facility] Administration Cholecalciferol 1,000 unit 12/13/16 12:00 12/13/16 09:13 Vitamin D3 PO 1,000 unit DAILY@1200 [facility] Administration Diltiazem HCl 120 mg 12/12/16 12:00 12/13/16 09:13 Cardizem Cd PO 120 mg DAILY [facility] Administration Heparin Sodium (Porcine) 0 unit 12/13/16 09:49 Heparin IV PER PROTOCOL PRN Low PTT Protocol Hydrochlorothiazide 12.5 mg 12/12/16 11:45 12/13/16 09:14 Hydrodiuril PO 12.5 mg DAILY [facility]AND Administration Sodium Chloride 1,000 mls @ 20 mls/hr 12/11/16 15:00 12/12/16 23:19 Saline 0.9% IV 20 mls/hr .Q24H [facility]AND Administration Heparin Sodium/Dextrose 25,000 500 mls @ 41.25 mls/hr 12/13/16 10:00 10:11 unit/ IV Solution IV 18 units/kg/hr .Q12H8M RAND 41.25 mls/hr Protocol Administration 18 UNITS/KG/HR Losartan Potassium 100 mg 12/12/16 11:45 12/13/16 09:14 Cozaar PO 100 mg DAILY [facility]AND Administration Meloxicam 15 mg 12/12/16 11:45 12/13/16 09:14 Mobic PO 15 mg DAILY [facility]AND Administration Miscellaneous Information 1 each 12/12/16 00:34 Rx Info: Iv Contrast Was Given MISCELLANE 12/14/16 00:35 DAILY PRN Per Protocol Multivitamins/Minerals 1 each 12/12/16 11:45 12/13/16 09:13 Ivite PO 1 each DAILY [facility] Administration Nitroglycerin 0.4 mg 12/11/16 14:52 Nitrostat SUBLINGUAL Q5M PRN Chest Pain Nystatin 1 applic 12/12/16 11:38 Mycostatin Cream TOPICAL BID PRN Rash Intake and Output 12/12/16 12/13/16 12/13/16 22:59 06:59 14:59 Intake Total 180 Output Total 800 2350 350 Balance -800 -2350 -170 Intake: Oral 180 Output: Urine 800 2350 350 Other: Voiding Method Toilet Toilet Toilet Bedside Commode Bedside Commode Bedside Commode # Voids 1 1 # Bowel Movements 1 1 Weight 114 kg 114.6 kg 12/13/16 10:15 12/13/16 06:24
[2016-12-13] MEDS: HEPARIN SODIUM,PORCINE/D5W PMX 25,000 UNIT in DEXTROSE/WATER 1 500ML.BAG IV SCH ×2 (10:11→23:13)
--- NOTE | 2016-12-13 10:20 | ECHOF ---
Referral Reason:PE MEASUREMENTS -------- HEIGHT: 157.5 cm WEIGHT: 113.8 kg BP: 127/77 RVIDd: 3.3 cm (< 3.3) IVSd: 1.1 cm (0.6 - 1.1) LVIDd: 4.2 cm (3.9 - 5.3) LVPWd: 1.0 cm (0.6 - 1.1) IVSs: 1.5 cm LVIDs: 2.7 cm LVPWs: 1.4 cm LA Diam: 3.2 cm (2.7 - 3.8) MV E Deni: 0.73 m/s MV DecT: 199 ms MV A Deni: 1.03 m/s MV E/A Ratio: 0.71 RAP: 5.00 mmHg RVSP: 59.47 mmHg FINDINGS -------- Sinus rhythm. Morbid Obesity This was a techncally difficult study with suboptimal views, , Definity utilized for enhancement of images. There is mild concentric left ventricular hypertrophy. Overall left ventricular systolic function is low-normal with, an EF between 50 - 55 %. The right ventricle is normal in size. The left atrial size is normal. The right atrial size is normal. 1.5MG OF DEFINITY UTLIZED: 2 OR MORE WALL SEGMENTS NOT VISUALIZED. The aortic valve was not well visualized. Mild mitral annular calcification present. Mild mitral regurgitation is present. Mild tricuspid regurgitation present. There is moderate pulmonary hypertension. The right ventricular systolic pressure, as measured by Doppler, is 59.47mmHg. The pulmonic valve was not well visualized. The aortic root size is normal. IVC Not well visulized. There is no pericardial effusion. CONCLUSIONS -------- 1. There is mild concentric left ventricular hypertrophy. 2. IVC Not well visulized. 3. Overall left ventricular systolic function is low-normal with, an EF between 50 - 55 %. 4. The aortic valve was not well visualized. 5. Mild mitral annular calcification present. 6. Mild mitral regurgitation is present. 7. Mild tricuspid regurgitation present. 8. There is moderate pulmonary hypertension. 9. The right ventricular systolic pressure, as measured by Doppler, is 59.47mmHg. 10. The pulmonic valve was not well visualized. MEAT HANGER: Nelda Reynolds RDCS
[2016-12-13 10:54] LABS: INR 1.2 (<1.1); Prothrombin Time 11.7 sec (9.0-12.0)
[2016-12-13 11:21] LABS: Basophils % (A) 0 %; CH 31.6; Eosinophils # (A) 0.1 k/uL (0-0.7); Eosinophils % (A) 1 %; HCT 40.5 % (34.0-46.0); HDW 2.17; Luc # (Auto) 0.16; Luc % (Auto) 2; Lymphocytes # (A) 1.5 k/uL (1.0-4.8); Lymphocytes % (A) 14 %; MCH 31.7 pg (25.0-35.0); MCV 99.1 fL (80.0-100.0); Mean Platelet Volume 8.1; Monocytes # (A) 0.4 k/uL (0-1.0); Monocytes % (A) 4 %; Neutrophils # (A) 8.5 k/uL (1.3-7.7); Neutrophils % (A) 79 %; RBC 4.09 m/uL (3.80-5.40); RDW 13.6 % (11.5-15.5); WBC 10.8 k/uL (3.8-10.6); WBC (Perox) 11.01
--- NOTE | 2016-12-13 11:51 | P.PN ---
Subjective Patient presented with shortness of breath and found to have numerous bilateral PE and a right lower extremity DVT. Evaluated by cardiology Lovenox discontinued and switched over to IV heparin. Checking to see if insurance will cover Xarelto. Patient still having some shortness of breath denies any chest pain denies any leg pain. Denies any nausea or vomiting. Denies any bowel movement changes or urinary symptoms. Objective - Vital Signs Vital signs: Vital Signs Temp 97.6 F 12/13/16 09:17 Pulse 91 12/13/16 09:17 Resp 18 12/13/16 09:17 BP 133/79 12/13/16 09:17 Pulse Ox 93 L 12/13/16 09:17 Intake & Output 12/12/16 12/13/16 12/13/16 18:59 06:59 18:59 Intake Total 240 180 Output Total 350 3150 350 Balance -110 -3150 -170 Weight 114.6 kg Intake: Oral 240 180 Output: Urine 350 3150 350 Other: Voiding Method Toilet Toilet Bedside Commode Bedside Commode # Voids 1 1 # Bowel Movements 1 1 - Exam Head normocephalic Neck supple Lungs diminished with a few faint wheezes noted anteriorly Heart regular rate and rhythm S1-S2, no rub or gallop Abdomen is soft nontender nondistended positive bowel sounds no hepatosplenomegaly Extremities no edema Neuro alert and orientated to 3 - Labs CBC & Chem 7: 12/13/16 10:15 12/13/16 06:24 Labs: Abnormal Lab Results - Last 24 Hours (Table) 12/13/16 12/13/16 12/13/16 Range/Units 06:24 06:27 10:15 WBC 10.8 H (3.8-10.6) k/uL Plt Count 135 L 128 L (150-450) k/uL Neutrophils # 8.5 H (1.3-7.7) k/uL BUN 20 H (7-17) mg/dL Glucose 113 H (74-99) mg/dL AST 43 H (14-36) U/L ALT 84 H (9-52) U/L Total Protein 5.9 L (6.3-8.2) g/dL Albumin 3.4 L (3.5-5.0) g/dL Assessment and Plan Plan: 1. Numerous bilateral pulmonary emboli plus right lower extremity DVT. Cardiology has discontinued IV Lovenox and place patient on IV heparin. They' re checking to see if insurance covers Xarelto. They've ordered an echocardiogram. Pulmonary consulted 2. Elevated troponin and BNP per cardiology secondary to a submassive PE 3. Paroxysmal atrial fibrillation evaluated by cardiology. Patient has had normal sinus rhythm with PACs. Continue with anticoagulation. 4. History of morbid obesity 5. Essential hypertension: blood pressure stable 6. Hyperlipidemia continue Lipitor
[2016-12-13] MEDS ORDERED: RX INFO: IV CONTRAST WAS GIVEN 1 EACH MISC MISCELLANE PRN (14:40)
--- NOTE | 2016-12-13 14:40 | P.CNPUL ---
History of Present Illness Consult date: 12/13/16 Reason for consult: pulmonary embolism History of present illness: Patient is a 76-year-old female who presented to the office on 12/11/2016 with a chief complaint of worsening shortness of breath evaluation in the office revealed evidence of atrial fibrillation with rapid ventricular response which is new to patient she was sent to [facility] emergency room where she was evaluated and was admitted to telemetry floor she was started on subcu Lovenox 1 mg/kg twice daily she was also started on oral Cardizem heart rate was well controlled and actually patient converted to normal sinus rhythm spontaneously however her shortness of breath continued to worsen at that time she had a d-dimer drawn and computed tomography scan of the chest with contrast was done and was positive for bilateral pulmonary embolism she was switched to IV heparin. The patient was further found to have a popliteal DVT in the right lower extremity. The left lower extremity was free of any CLOTS. Echocardiogram was done and the patient was found to have a preserved LV function with an ejection fraction of 50-55%. Her right-sided pulmonary artery pressure is around 59 consistent with moderate degree of pulmonary hypertension. She is feeling better. She is less short of breath. Her cardiac rhythm remains sinus for the time being. Past Medical History Past Medical History: Hypertension Additional Past Medical History / Comment(s): obesity, CHAN and the patient is currently on CPAP, HTN, osteoporosis, hyperlipidemia, endometrial cancer and she had hysterectomy, osteoporosis History of Any Multi-Drug Resistant Organisms: None Reported Past Surgical History: Back Surgery, Joint Replacement Additional Past Surgical History / Comment(s): left knee replacement (2011) Past Psychological History: No Psychological Hx Reported Smoking Status: Never smoker Past Alcohol Use History: Occasional Past Drug Use History: None Reported - Past Family History Father Family Medical History: Myocardial Infarction ([place]) Additional Family Medical History / Comment(s): Lung cancer, Lymphoma, Mother Family Medical History: Congestive Heart Failure (CHF) Medications and Allergies Home Medications Medication Instructions Recorded Confirmed Type Alendronate Sodium 70 mg PO TU 12/11/16 12/11/16 History Atorvastatin Calcium [Lipitor] 10 mg PO DAILY 12/11/16 12/11/16 History Calcium Carbonate [Calcium] 600 mg PO DAILY 12/11/16 12/11/16 History Cholecalciferol [Vitamin D3] 1,000 unit PO DAILY 12/11/16 12/11/16 History Meloxicam 15 mg PO DAILY 12/11/16 12/11/16 History Nystatin 100,000Unit/gm Cream 1 applic TOPICAL BID PRN 12/11/16 12/11/16 History [Mycostatin Cream] Olmesartan/Hydrochlorothiazide 1 tab PO DAILY 12/11/16 12/11/16 History [Benicar Hct 20-12.5 mg Tablet] Scopolamine 1.5MG/72Hr Patch 1 patch TRANSDERM Q72H 12/11/16 12/11/16 History [Transderm-Scop 1.5MG/72Hr Patch] Vit A,C & W-Ihmdgk-Umkqjrwq [Ivite] 1 tab PO DAILY 12/11/16 12/11/16 History Allergies Allergy/AdvReac Type Severity Reaction Status Date / Time monosodium glutamate [MSG] Allergy Unknown Verified 12/11/16 12:47 Penicillins Allergy Anaphylaxis Verified 12/11/16 12:47 Sulfa (Sulfonamide Allergy Anaphylaxis Verified 12/11/16 12:47 Antibiotics) Physical Exam Vitals: Vital Signs Temp Pulse Pulse Resp BP Pulse Ox 12/13/16 12:08 97.7 F 83 85 18 133/76 92 L 12/13/16 09:17 97.6 F 83 79 18 133/79 93 L 12/13/16 04:00 97.1 F L 83 91 18 127/77 95 12/13/16 00:00 98.3 F 83 83 16 136/94 96 12/12/16 20:00 98.3 F 87 18 130/81 12/12/16 16:00 91 18 141/82 96 12/12/16 14:52 94 L Intake and Output 12/12/16 12/13/16 12/13/16 22:59 06:59 14:59 Intake Total 416 Output Total 800 2350 550 Balance -800 -2350 -134 Intake: Oral 416 Output: Urine 800 2350 550 Other: Voiding Method Toilet Toilet Toilet Bedside Commode Bedside Commode Bedside Commode # Voids 1 1 # Bowel Movements 1 1 Weight 114 kg 114.6 kg Morbidly obese, calm and comfortable, in acute distress.Head exam was generally normal. There was no scleral icterus or corneal arcus. Mucous membranes were moist. Neck is short and supple and there is no JVDs no goiter or neck masses and the patient has a Mallampati class IV. Lung sounds are diminished bilaterally otherwise clear. There is no wheezes or rhonchi or any crackles.Cardiac exam revealed the PMI to be normally situated and sized. The rhythm was regular and no extrasystoles were noted during several minutes of auscultation. The first and second heart sounds were normal and physiologic splitting of the second heart sound was noted. There were no murmurs, rubs, clicks, or gallops. Abdomen was obese and orders cannot be accurately palpated. There is no direct tenderness. No rebound tenderness. No guarding.Examination of the extremities revealed easily palpable radial, femoral and pedal pulses. There was no cyanosis, clubbing or edema. Results - Laboratory Findings CBC and BMP: 12/13/16 10:15 12/13/16 06:24 PT/INR, D-dimer PT 11.7 sec (9.0-12.0) 12/13/16 10:15 INR 1.2 (<1.1) 12/13/16 10:15 D-Dimer 13.36 mg/L FEU (<0.60) H 12/11/16 19:16 Abnormal lab findings: Abnormal Labs 12/11/16 12/11/16 12/12/16 18:35 19:16 00:29 WBC Plt Count Neutrophils # D-Dimer 13.36 H BUN Glucose AST ALT Troponin I 0.133 H* 0.123 H* Total Protein Albumin 12/13/16 12/13/16 12/13/16 06:24 06:27 10:15 WBC 10.8 H Plt Count 135 L 128 L Neutrophils # 8.5 H D-Dimer BUN 20 H Glucose 113 H AST 43 H ALT 84 H Troponin I Total Protein 5.9 L Albumin 3.4 L - Diagnostic Findings CT scan - chest: image reviewed Assessment and Plan Plan: Assessment 1 acute bilateral pulmonary embolism with a left lower extremity popliteal DVT, currently on IV heparin, this was an unprovoked event 2 moderate degree of pulmonary hypertension with troponin leak secondary to acute pulmonary embolism 3 paroxysmal atrial fibrillation, currently back to sinus, secondary to acute pulmonary embolism 4 morbid obesity 5 obstructive sleep apnea maintained on CPAP therapy on outpatient basis 6 osteoporosis 7 endometrial cancer with a previous hysterectomy and the patient apparently has been in disease remission 8 hyperlipidemia 9 osteoarthritis Plan Agree on IV heparin. We'll transition this patient to oral Xarelto as long as she has coverage for that otherwise she'll go to routine Coumadin treatment. Meanwhile, this is an unprovoked pulmonary embolism. We will investigate this further around it's reasonable to obtain a CAT scan of the abdomen and pelvis making sure there is no intra-abdominal malignancy contributing to this unprovoked PE. The patient according to her has been active and there is no other identifiable risk factors for her acute PE.
[2016-12-13] MEDS: IOHEXOL 350 MG/ML 25 ML BOTTLE (ORAL USE) PO PRN ×2 (14:59→16:30)
[2016-12-13] MEDS: SODIUM CHLORIDE 0.9% 1,000 ML IV SCH (16:53)
--- NOTE | 2016-12-13 22:42 | CT ---
EXAMINATION TYPE: CT abdomen pelvis w con DATE OF EXAM: 12/13/2016 5:17 PM HISTORY: Recent diagnosis of pulmonary embolism. History of endometrial cancer. CT DLP: 1624.00mGycm Automated Exposure Control for Dose Reduction was Utilized. CONTRAST: CT scan of the abdomen and pelvis is performed with IV Contrast, patient injected with 100 mL of Omni paque 300. COMPARISON: None. FINDINGS: LUNG BASES: Small bilateral diaphragmatic hernias. Additionally there is subsegmental bibasilar atele ctasis. LIVER/GB: The hepatic parenchyma is homogeneously hypoattenuated compatible with diffuse hepatic stea tosis, which limits the evaluation for hepatic masses. The gallbladder is unremarkable. Common bile d uct is within normal limits of size. Portal vein is grossly patent and not enlarged. No perihepatic f luid. PANCREAS: No significant abnormality is seen. SPLEEN: No significant abnormality is seen. ADRENALS: No significant abnormality is seen. KIDNEYS: Bilateral nonspecific perinephric fat stranding is appreciated. A single hypoattenuated 3 mm lesion is seen within the left lower pole of the kidney that is too small to accurately characterize . Within the right kidney there is a cortically based 21 mm renal cyst in the anterior cortex. No john dence of hydronephrosis. BOWEL: No significant abnormality is seen. UTERUS/ADNEXA: The uterus is surgically absent. The ovaries are nonvisualized and also likely surgica lly absent. LYMPH NODES: No greater than 1cm abdominal or pelvic lymph nodes are appreciated. OSSEOUS STRUCTURES: Levoconvex scoliotic curvature of the thoracolumbar spine and extensive degenerat sana changes with postsurgical fixation of the lumbar spine and laminectomy defects. OTHER: Subcutaneous emphysema likely from subcutaneous injections is seen of the right anterior abdom inal wall. There is a fat filled umbilical hernia with abutting adjacent nondilated and nonincarcerat ed bowel. IMPRESSION: 1. No acute intra-abdominal process. 2. No evidence of intra-abdominal or pelvic lymphadenopathy. 3. No gross evidence of osseous or visceral metastasis.
[2016-12-14 06:51] LABS: Basophils # (A) 0.1 k/uL (0-0.2); Basophils % (A) 0 %; CH 31.6; CHCM 31.9; Eosinophils # (A) 0.5 k/uL (0-0.7); Eosinophils % (A) 5 %; HCT 43.6 % (34.0-46.0); HDW 2.17; HGB 13.7 gm/dL (11.4-16.0); Luc # (Auto) 0.21; Luc % (Auto) 2; Lymphocytes # (A) 2.3 k/uL (1.0-4.8); Lymphocytes % (A) 21 %; MCH 31.2 pg (25.0-35.0); MCHC 31.3 g/dL (31.0-37.0); MCV 99.5 fL (80.0-100.0); Mean Platelet Volume 7.4; Monocytes # (A) 0.5 k/uL (0-1.0); Monocytes % (A) 4 %; Neutrophils # (A) 7.8 k/uL (1.3-7.7); Neutrophils % (A) 68 %; RBC 4.38 m/uL (3.80-5.40); RDW 13.7 % (11.5-15.5); WBC 11.4 k/uL (3.8-10.6); WBC (Perox) 11.78
[2016-12-14 06:59] LABS: ALT 79 U/L (9-52); AST 44 U/L (14-36); Alkaline Phosphatase 82 U/L (38-126); Anion Gap 8 mmol/L; Blood Urea Nitrogen 15 mg/dL (7-17); Calcium 9.3 mg/dL (8.4-10.2); Carbon Dioxide 30 mmol/L (22-30); Chloride 102 mmol/L (98-107); Glucose 127 mg/dL (74-99); Non-African American GFR(MDRD) >60 (>60 ml/min/1.73 sqM); Potassium 4.3 mmol/L (3.5-5.1); Sodium 140 mmol/L (137-145); Total Bilirubin 0.7 mg/dL (0.2-1.3); Total Protein 6.6 g/dL (6.3-8.2)
[2016-12-14] MEDS: HYDROCHLOROTHIAZIDE 12.5 MG CAP PO SCH (09:00)
[2016-12-14] MEDS: ATORVASTATIN 10 MG TAB PO SCH (09:00)
[2016-12-14] MEDS: DILTIAZEM CD 120 MG CAP.ER.24H PO SCH (09:00)
[2016-12-14] MEDS: ASPIRIN 325 MG TAB PO SCH (09:00)
[2016-12-14] MEDS: LOSARTAN 50 MG TAB PO SCH (09:00)
[2016-12-14] MEDS: VIT A,C & E-LUTEIN-MINERALS 1 EACH TAB PO SCH (09:01)
[2016-12-14] MEDS: CHOLECALCIFEROL 1,000 UNIT TAB PO SCH (09:01)
[2016-12-14] MEDS: MELOXICAM 7.5 MG TAB PO SCH (09:01)
[2016-12-14] MEDS: CALCIUM CARBONATE 500 MG CHEWABLE PO SCH (09:01)
[2016-12-14] MEDS: HEPARIN SODIUM,PORCINE/D5W PMX 25,000 UNIT in DEXTROSE/WATER 1 500ML.BAG IV SCH (11:18)
--- NOTE | 2016-12-14 12:17 | P.PN ---
Subjective Principal diagnosis: Bilateral pulmonary embolism Patient is a 76-year-old female who presented to [facility] was worsening shortness of breath initially she was found to have paroxysmal atrial fibrillation, she was started on subcu Lovenox. Therapeutic dose. She was also started on Cardizem. She converted into normal sinus rhythm however she continued to have severe shortness of breath, d-dimer was severely elevated she underwent angiogram of the chest that was positive for bilateral pulmonary embolism. She was switched to IV heparin. Currently patient is doing better there is some improvement in her shortness of breath, her insurance wouldn't cover some L total however patient and her family does not want to be on Xarelto. They wish to be on Coumadin which will be started today. Objective - Vital Signs Vital signs: Vital Signs Temp 97.6 F 12/14/16 11:44 Pulse 94 12/14/16 11:44 Resp 18 12/14/16 11:44 BP 157/79 12/14/16 11:44 Pulse Ox 96 12/14/16 11:44 Intake & Output 12/13/16 12/14/16 12/14/16 18:59 06:59 18:59 Intake Total 1175 950.000 330 Output Total 550 1400 Balance 625 -450.000 330 Weight 115.8 kg Intake: IV 450 Sodium Chloride 0.9% 1, 450 000 ml @ 20 mls/hr IV . Q24H [facility] Rx#:[id number] Intake, IV Titration 523 500.000 330 Amount Heparin Sodium,Porcine/ 123 500.000 330 D5w Pmx 25,000 unit In Dextrose/Water 1 500ml. bag @ 18 UNITS/KG/HR 41. 25 mls/hr IV .Q12H8M [facility] Rx#:[id number] Sodium Chloride 0.9% 1, 400 000 ml @ 20 mls/hr IV . Q24H [facility] Rx#:[id number] Oral 652 Output: Urine 550 1400 Other: Voiding Method Toilet Toilet Toilet Bedside Commode Bedside Commode Bedside Commode # Voids 2 1 # Bowel Movements 2 1 - Exam In general patient is alert and oriented 3 in no apparent distress HEENT head normocephalic and nontraumatic Neck is supple no JVD no goiter no lymphadenopathy Chest exam reveals a few scattered rhonchi no wheezing Cardiac exam reveals regular heart sounds no murmurs Abdomen is soft nontender no organomegaly Extremity exam reveals no edema no cyanosis or clubbing - Labs CBC & Chem 7: 12/14/16 06:34 12/14/16 06:34 Labs: Abnormal Lab Results - Last 24 Hours (Table) 12/13/16 12/14/16 12/14/16 Range/Units 16:36 06:34 06:34 WBC 11.4 H (3.8-10.6) k/uL Neutrophils # 7.8 H (1.3-7.7) k/uL APTT 56.0 H (22.0-30.0) sec Glucose 127 H (74-99) mg/dL AST 44 H (14-36) U/L ALT 79 H (9-52) U/L 12/14/16 Range/Units 06:34 WBC (3.8-10.6) k/uL Neutrophils # (1.3-7.7) k/uL APTT 90.8 H (22.0-30.0) sec Glucose (74-99) mg/dL AST (14-36) U/L ALT (9-52) U/L Assessment and Plan Plan: #1 new onset atrial fibrillation with rapid ventricular response #2 bilateral pulmonary embolism #3 known history of hypertension #4 morbid obesity #5 mildly elevated troponin levels Plan at this time to continue with Cardizem continue with IV heparin Start on oral Coumadin today Will discharge home when INR is therapeutic
--- NOTE | 2016-12-14 12:48 | P.PN ---
Subjective Patient is a 76-year-old female who presented to the office on 12/11/2016 with a chief complaint of worsening shortness of breath evaluation in the office revealed evidence of atrial fibrillation with rapid ventricular response which is new to patient she was sent to [facility] emergency room where she was evaluated and was admitted to telemetry floor she was started on subcu Lovenox 1 mg/kg twice daily she was also started on oral Cardizem heart rate was well controlled and actually patient converted to normal sinus rhythm spontaneously however her shortness of breath continued to worsen at that time she had a d-dimer drawn and computed tomography scan of the chest with contrast was done and was positive for bilateral pulmonary embolism she was switched to IV heparin. The patient was further found to have a popliteal DVT in the right lower extremity. The left lower extremity was free of any CLOTS. Echocardiogram was done and the patient was found to have a preserved LV function with an ejection fraction of 50-55%. Her right-sided pulmonary artery pressure is around 59 consistent with moderate degree of pulmonary hypertension. She is feeling better. She is less short of breath. Her cardiac rhythm remains sinus for the time being. On 12/14/2016, the patient is still on IV heparin. There were thinking of approving this patient for Xarelto however the patient had specific wishes not to use this type of oral anticoagulants due to concerns of side effects. She opted to proceed with warfarin. Based on this, I will start the patient on 7.5 g of warfarin today and daily PT/INR monitoring will be done. Meanwhile, the patient is not having any complaints. No chest pain. No cough or sputum production. No hemoptysis. No bleeding complications from IV heparin. No other significant events over the past 24 hours. Echocardiogram results were noted. Objective - Vital Signs Vital signs: Vital Signs Temp 97.6 F 12/14/16 11:44 Pulse 94 12/14/16 11:44 Resp 18 12/14/16 11:44 BP 157/79 12/14/16 11:44 Pulse Ox 96 12/14/16 11:44 Intake & Output 12/13/16 12/14/16 12/14/16 18:59 06:59 18:59 Intake Total 1175 950.000 330 Output Total 550 1400 Balance 625 -450.000 330 Weight 115.8 kg Intake: IV 450 Sodium Chloride 0.9% 1, 450 000 ml @ 20 mls/hr IV . Q24H [facility] Rx#:[id number] Intake, IV Titration 523 500.000 330 Amount Heparin Sodium,Porcine/ 123 500.000 330 D5w Pmx 25,000 unit In Dextrose/Water 1 500ml. bag @ 18 UNITS/KG/HR 41. 25 mls/hr IV .Q12H8M [facility] Rx#:[id number] Sodium Chloride 0.9% 1, 400 000 ml @ 20 mls/hr IV . Q24H [facility] Rx#:[id number] Oral 652 Output: Urine 550 1400 Other: Voiding Method Toilet Toilet Toilet Bedside Commode Bedside Commode Bedside Commode # Voids 2 1 # Bowel Movements 2 1 - Exam Morbidly obese, calm and comfortable, in acute distress.Head exam was generally normal. There was no scleral icterus or corneal arcus. Mucous membranes were moist. Neck is short and supple and there is no JVDs no goiter or neck masses and the patient has a Mallampati class IV. Lung sounds are diminished bilaterally otherwise clear. There is no wheezes or rhonchi or any crackles.Cardiac exam revealed the PMI to be normally situated and sized. The rhythm was regular and no extrasystoles were noted during several minutes of auscultation. The first and second heart sounds were normal and physiologic splitting of the second heart sound was noted. There were no murmurs, rubs, clicks, or gallops. Abdomen was obese and orders cannot be accurately palpated. There is no direct tenderness. No rebound tenderness. No guarding.Examination of the extremities revealed easily palpable radial, femoral and pedal pulses. There was no cyanosis, clubbing or edema. - Labs CBC & Chem 7: 12/14/16 06:34 12/14/16 06:34 Labs: Abnormal Lab Results - Last 24 Hours (Table) 12/13/16 12/14/16 12/14/16 Range/Units 16:36 06:34 06:34 WBC 11.4 H (3.8-10.6) k/uL Neutrophils # 7.8 H (1.3-7.7) k/uL APTT 56.0 H (22.0-30.0) sec Glucose 127 H (74-99) mg/dL AST 44 H (14-36) U/L ALT 79 H (9-52) U/L 12/14/16 Range/Units 06:34 WBC (3.8-10.6) k/uL Neutrophils # (1.3-7.7) k/uL APTT 90.8 H (22.0-30.0) sec Glucose (74-99) mg/dL AST (14-36) U/L ALT (9-52) U/L Assessment and Plan Plan: Assessment 1 acute bilateral pulmonary embolism with a left lower extremity popliteal DVT, currently on IV heparin, this was an unprovoked event Clinically the patient is stable. The patient is on IV heparin and she'll be transitioned to oral warfarin. 2 moderate degree of pulmonary hypertension with troponin leak secondary to acute pulmonary embolism 3 paroxysmal atrial fibrillation, currently back to sinus, secondary to acute pulmonary embolism 4 morbid obesity 5 obstructive sleep apnea maintained on CPAP therapy on outpatient basis 6 osteoporosis 7 endometrial cancer with a previous hysterectomy and the patient apparently has been in disease remission 8 hyperlipidemia 9 osteoarthritis Plan The patient is on IV heparin. We'll keep the IV heparin until the patient becomes therapeutic on her INR and she'll be started on 7.5 mg of Coumadin today. She is doing well and she has no specific complaints for now. She is hemodynamically stable. Her cardiac rhythm remains sinus. We'll continue to follow. I anticipate the patient will stay in the hospital until her she is fully anticoagulated.
--- NOTE | 2016-12-14 15:43 | P.PN ---
Subjective Principal diagnosis: Pulmonary embolism This is a 76-year-old female with history of hypertension, endometrial cancer, who was admitted from Dr. Subramanian's office. She states that since Tuesday of last week she has been progressively more and more short of breath. Patient states she's been working out at the [facility] in preparation to go on vacation. Because of the persistence in shortness of breath, patient went to see Dr. Pena in his office. An EKG was performed there which the computer interpreted to be atrial fibrillation, upon review of that EKG, it appears to be a sinus rhythm with PACs. EKG on arrival here showed a sinus tachycardia with occasional PVC and PAC, subsequent EKG performed yesterday morning also showed a normal sinus rhythm with occasional PVC. This morning patient continues to be in normal sinus rhythm. Because of the questionable atrial fibrillation on the office EKG patient was referred for admission. Chest x-ray on admission here showed cardiomegaly with no acute change. CTA of the chest was performed which was positive for large filling defects in the left and right pulmonary arteries involving mainly the lower lobe branches. Numerous large bilateral pulmonary embolism. Venous duplex study was performed which was positive for DVT in the right leg. Patient was initiated on Lovenox in the emergency room. has remained in normal sinus rhythm. Echo with Doppler study revealed an ejection fraction of 50-55%. Objective - Vital Signs Vital signs: Vital Signs Temp 97.6 F 12/14/16 11:44 Pulse 94 12/14/16 11:44 Resp 18 12/14/16 11:44 BP 157/79 12/14/16 11:44 Pulse Ox 96 12/14/16 11:44 Intake & Output 12/13/16 12/14/16 12/14/16 18:59 06:59 18:59 Intake Total 1175 950.000 330 Output Total 550 1400 Balance 625 -450.000 330 Weight 115.8 kg Intake: IV 450 Sodium Chloride 0.9% 1, 450 000 ml @ 20 mls/hr IV . Q24H [facility] Rx#:[id number] Intake, IV Titration 523 500.000 330 Amount Heparin Sodium,Porcine/ 123 500.000 330 D5w Pmx 25,000 unit In Dextrose/Water 1 500ml. bag @ 18 UNITS/KG/HR 41. 25 mls/hr IV .Q12H8M [facility] Rx#:[id number] Sodium Chloride 0.9% 1, 400 000 ml @ 20 mls/hr IV . Q24H [facility] Rx#:[id number] Oral 652 Output: Urine 550 1400 Other: Voiding Method Toilet Toilet Toilet Bedside Commode Bedside Commode Bedside Commode # Voids 2 1 # Bowel Movements 2 1 - Exam PHYSICAL EXAMINATION: HEENT: Head is atraumatic, normocephalic. Pupils equal, round. Neck is supple. There is elevated jugular venous pressure. HEART EXAMINATION: Heart S1 and S2 systolic murmur is heard. CHEST EXAMINATION: Lungs are clear with diminished air entry to bilateral bases. ABDOMEN: Soft, obese, nontender. Bowel sounds are heard. No organomegaly noted. EXTREMITIES: 2+ peripheral pulses with trace evidence of peripheral edema and no calf tenderness noted. NEUROLOGIC patient is awake, alert and oriented -3. . - Labs CBC & Chem 7: 12/14/16 06:34 12/14/16 06:34 Labs: Abnormal Lab Results - Last 24 Hours (Table) 12/13/16 12/14/16 12/14/16 Range/Units 16:36 06:34 06:34 WBC 11.4 H (3.8-10.6) k/uL Neutrophils # 7.8 H (1.3-7.7) k/uL APTT 56.0 H (22.0-30.0) sec Glucose 127 H (74-99) mg/dL AST 44 H (14-36) U/L ALT 79 H (9-52) U/L 12/14/16 12/14/16 Range/Units 06:34 13:18 WBC (3.8-10.6) k/uL Neutrophils # (1.3-7.7) k/uL APTT 90.8 H 61.6 H (22.0-30.0) sec Glucose (74-99) mg/dL AST (14-36) U/L ALT (9-52) U/L Assessment and Plan Plan: Assessment and plan #1 bilateral pulmonary embolism, abnormal BNP, troponin, consistent with submassive PE. #2 sinus tachycardia #3 hypertension #4 history of endometrial cancer #5 obesity #6 hyperlipidemia Plan Echo with Doppler study was performed which revealed normal left ventricular systolic function. From cardiology's perspective, we'll follow this patient with you now on an as-needed basis only, please don't hesitate to call with any questions. DNP note has been reviewed, I agree with a documented findings and plan of care. Patient was seen and examined.
[2016-12-14] MEDS: SODIUM CHLORIDE 0.9% 1,000 ML IV SCH (16:35)
[2016-12-14] MEDS ORDERED: WARFARIN 7.5 MG TAB PO ONE (18:00)
[2016-12-15] MEDS: HEPARIN SODIUM,PORCINE/D5W PMX 25,000 UNIT in DEXTROSE/WATER 1 500ML.BAG IV SCH ×2 (05:43→11:14)
[2016-12-15 06:31] LABS: Basophils % (A) 1 %; CH 31.5; CHCM 31.5; Eosinophils # (A) 0.6 k/uL (0-0.7); Eosinophils % (A) 6 %; HCT 38.9 % (34.0-46.0); HDW 2.18; HGB 12.3 gm/dL (11.4-16.0); Luc # (Auto) 0.17; Luc % (Auto) 2; Lymphocytes # (A) 1.6 k/uL (1.0-4.8); Lymphocytes % (A) 17 %; MCH 31.7 pg (25.0-35.0); MCHC 31.6 g/dL (31.0-37.0); MCV 100.3 fL (80.0-100.0); Macrocytosis Slight; Mean Platelet Volume 7.7; Monocytes # (A) 0.4 k/uL (0-1.0); Monocytes % (A) 4 %; Neutrophils # (A) 6.4 k/uL (1.3-7.7); Neutrophils % (A) 70 %; RBC 3.88 m/uL (3.80-5.40); RDW 13.8 % (11.5-15.5); WBC 9.2 k/uL (3.8-10.6); WBC (Perox) 9.23
[2016-12-15 06:47] LABS: INR 1.2 (<1.1); Partial Thromboplastin Time 54.4 sec (22.0-30.0); Prothrombin Time 11.6 sec (9.0-12.0)
[2016-12-15 06:51] LABS: ALT 81 U/L (9-52); AST 42 U/L (14-36); Alkaline Phosphatase 77 U/L (38-126); Anion Gap 8 mmol/L; Blood Urea Nitrogen 15 mg/dL (7-17); Calcium 8.7 mg/dL (8.4-10.2); Carbon Dioxide 27 mmol/L (22-30); Chloride 105 mmol/L (98-107); Glucose 129 mg/dL (74-99); Non-African American GFR(MDRD) >60 (>60 ml/min/1.73 sqM); Potassium 3.6 mmol/L (3.5-5.1); Sodium 140 mmol/L (137-145); Total Bilirubin 0.6 mg/dL (0.2-1.3); Total Protein 5.6 g/dL (6.3-8.2)
[2016-12-15] MEDS: ATORVASTATIN 10 MG TAB PO SCH (09:34)
[2016-12-15] MEDS: ASPIRIN 325 MG TAB PO SCH (09:34)
[2016-12-15] MEDS: DILTIAZEM CD 120 MG CAP.ER.24H PO SCH (09:35)
[2016-12-15] MEDS: HYDROCHLOROTHIAZIDE 12.5 MG CAP PO SCH (09:35)
[2016-12-15] MEDS: LOSARTAN 50 MG TAB PO SCH (09:35)
[2016-12-15] MEDS: MELOXICAM 7.5 MG TAB PO SCH (09:36)
[2016-12-15] MEDS: VIT A,C & E-LUTEIN-MINERALS 1 EACH TAB PO SCH (09:36)
[2016-12-15] MEDS: CHOLECALCIFEROL 1,000 UNIT TAB PO SCH (11:20)
[2016-12-15] MEDS: CALCIUM CARBONATE 500 MG CHEWABLE PO SCH (11:20)
[2016-12-15 11:41] VITALS: BMI 47.2
--- NOTE | 2016-12-15 14:25 | P.PN ---
Subjective Patient is a 76-year-old female who presented to the office on 12/11/2016 with a chief complaint of worsening shortness of breath evaluation in the office revealed evidence of atrial fibrillation with rapid ventricular response which is new to patient she was sent to [facility] emergency room where she was evaluated and was admitted to telemetry floor she was started on subcu Lovenox 1 mg/kg twice daily she was also started on oral Cardizem heart rate was well controlled and actually patient converted to normal sinus rhythm spontaneously however her shortness of breath continued to worsen at that time she had a d-dimer drawn and computed tomography scan of the chest with contrast was done and was positive for bilateral pulmonary embolism she was switched to IV heparin. The patient was further found to have a popliteal DVT in the right lower extremity. The left lower extremity was free of any CLOTS. Echocardiogram was done and the patient was found to have a preserved LV function with an ejection fraction of 50-55%. Her right-sided pulmonary artery pressure is around 59 consistent with moderate degree of pulmonary hypertension. She is feeling better. She is less short of breath. Her cardiac rhythm remains sinus for the time being. On 12/14/2016, the patient is still on IV heparin. There were thinking of approving this patient for Xarelto however the patient had specific wishes not to use this type of oral anticoagulants due to concerns of side effects. She opted to proceed with warfarin. Based on this, I will start the patient on 7.5 g of warfarin today and daily PT/INR monitoring will be done. Meanwhile, the patient is not having any complaints. No chest pain. No cough or sputum production. No hemoptysis. No bleeding complications from IV heparin. No other significant events over the past 24 hours. Echocardiogram results were noted. On 12/15/2016 the patient is on IV heparin. She is doing extremely well. She is on warfarin. She was given 7.5 mg yesterday. The CAT scan of the abdomen came back also clean it was negative for any intra-abdominal malignancies. The patient has no major respiratory distress for now. PT INR remains subtherapeutic. Objective - Vital Signs Vital signs: Vital Signs Temp 97.7 F 12/15/16 11:15 Pulse 86 12/15/16 11:48 Resp 16 12/15/16 11:48 BP 136/88 12/15/16 11:15 Pulse Ox 92 L 02/01/17 07:45 Intake & Output 12/14/16 12/15/16 12/15/16 18:59 06:59 18:59 Intake Total 1128 140 202.296 Output Total 500 600 Balance 628 -460 202.296 Weight 117.3 kg 117.3 kg Intake: IV 160 140 Sodium Chloride 0.9% 1, 160 140 000 ml @ 20 mls/hr IV . Q24H [facility] Rx#:[id number] Intake, IV Titration 788 202.296 Amount Heparin Sodium,Porcine/ 500 202.296 D5w Pmx 25,000 unit In Dextrose/Water 1 500ml. bag @ 18 UNITS/KG/HR 41. 25 mls/hr IV .Q12H8M [facility] Rx#:[id number] Sodium Chloride 0.9% 1, 288 000 ml @ 20 mls/hr IV . Q24H [facility] Rx#:[id number] Oral 180 Output: Urine 500 600 Other: Voiding Method Toilet Toilet Toilet Bedside Commode Bedside Commode Bedside Commode # Bowel Movements 1 1 - Exam Morbidly obese, calm and comfortable, in acute distress.Head exam was generally normal. There was no scleral icterus or corneal arcus. Mucous membranes were moist. Neck is short and supple and there is no JVDs no goiter or neck masses and the patient has a Mallampati class IV. Lung sounds are diminished bilaterally otherwise clear. There is no wheezes or rhonchi or any crackles.Cardiac exam revealed the PMI to be normally situated and sized. The rhythm was regular and no extrasystoles were noted during several minutes of auscultation. The first and second heart sounds were normal and physiologic splitting of the second heart sound was noted. There were no murmurs, rubs, clicks, or gallops. Abdomen was obese and orders cannot be accurately palpated. There is no direct tenderness. No rebound tenderness. No guarding.Examination of the extremities revealed easily palpable radial, femoral and pedal pulses. There was no cyanosis, clubbing or edema. - Labs CBC & Chem 7: 12/15/16 05:41 12/15/16 05:41 Labs: Abnormal Lab Results - Last 24 Hours (Table) 12/15/16 12/15/16 12/15/16 Range/Units 05:41 05:41 05:41 MCV 100.3 H (80.0-100.0) fL Plt Count 148 L (150-450) k/uL APTT 54.4 H (22.0-30.0) sec Glucose 129 H (74-99) mg/dL AST 42 H (14-36) U/L ALT 81 H (9-52) U/L Total Protein 5.6 L (6.3-8.2) g/dL Albumin 3.1 L (3.5-5.0) g/dL Assessment and Plan Plan: Assessment 1 acute bilateral pulmonary embolism with a left lower extremity popliteal DVT, currently on IV heparin, this was an unprovoked event Clinically the patient is stable. The patient is on IV heparin and she'll be transitioned to oral warfarin. The PT/INR remains subtherapeutic for now. The patient will be given 10 mg of warfarin today. 2 moderate degree of pulmonary hypertension with troponin leak secondary to acute pulmonary embolism 3 paroxysmal atrial fibrillation, currently back to sinus, secondary to acute pulmonary embolism 4 morbid obesity 5 obstructive sleep apnea maintained on CPAP therapy on outpatient basis 6 osteoporosis 7 endometrial cancer with a previous hysterectomy and the patient apparently has been in disease remission 8 hyperlipidemia 9 osteoarthritis Plan The patient is on IV heparin. Warfarin 10 mg today. Repeat PT/INR. Keep IV heparin. Continue oxygen. Assess for home O2 at time of discharge.
[2016-12-15] MEDS: SODIUM CHLORIDE 0.9% 1,000 ML IV SCH (15:48)
[2016-12-15] MEDS ORDERED: WARFARIN 10 MG TAB PO ONE (18:00)
[2016-12-16 06:30] LABS: Basophils # (A) 0.1 k/uL (0-0.2); Basophils % (A) 1 %; CH 31.6; CHCM 32.1; Eosinophils # (A) 0.6 k/uL (0-0.7); Eosinophils % (A) 7 %; HCT 37.9 % (34.0-46.0); HDW 2.27; Luc % (Auto) 1; Lymphocytes # (A) 1.5 k/uL (1.0-4.8); Lymphocytes % (A) 17 %; MCH 31.4 pg (25.0-35.0); MCHC 31.8 g/dL (31.0-37.0); MCV 99.1 fL (80.0-100.0); Mean Platelet Volume 8.3; Monocytes # (A) 0.4 k/uL (0-1.0); Monocytes % (A) 4 %; Neutrophils # (A) 6.2 k/uL (1.3-7.7); Neutrophils % (A) 70 %; RBC 3.83 m/uL (3.80-5.40); RDW 13.8 % (11.5-15.5); WBC 8.8 k/uL (3.8-10.6); WBC (Perox) 9.31
[2016-12-16 06:35] LABS: INR 1.3 (<1.1); Prothrombin Time 12.8 sec (9.0-12.0)
[2016-12-16 06:50] LABS: Anion Gap 8 mmol/L; Calcium 8.5 mg/dL (8.4-10.2); Carbon Dioxide 29 mmol/L (22-30); Chloride 103 mmol/L (98-107); Glucose 100 mg/dL (74-99); Non-African American GFR(MDRD) >60 (>60 ml/min/1.73 sqM); Sodium 140 mmol/L (137-145); Total Bilirubin 0.6 mg/dL (0.2-1.3); Total Protein 5.6 g/dL (6.3-8.2)
[2016-12-16 06:51] LABS: AST 44 U/L (14-36); Blood Urea Nitrogen 14 mg/dL (7-17); Potassium 4.4 mmol/L (3.5-5.1)
[2016-12-16 06:52] LABS: ALT 73 U/L (9-52); Alkaline Phosphatase 64 U/L (38-126)
[2016-12-16] MEDS: HEPARIN SODIUM,PORCINE/D5W PMX 25,000 UNIT in DEXTROSE/WATER 1 500ML.BAG IV SCH ×2 (09:06→09:20)
[2016-12-16] MEDS: LOSARTAN 50 MG TAB PO SCH (09:18)
[2016-12-16] MEDS: HYDROCHLOROTHIAZIDE 12.5 MG CAP PO SCH (09:18)
[2016-12-16] MEDS: ASPIRIN 325 MG TAB PO SCH (09:18)
[2016-12-16] MEDS: ATORVASTATIN 10 MG TAB PO SCH (09:18)
[2016-12-16] MEDS: DILTIAZEM CD 120 MG CAP.ER.24H PO SCH (09:18)
[2016-12-16] MEDS: MELOXICAM 7.5 MG TAB PO SCH (09:19)
[2016-12-16] MEDS: VIT A,C & E-LUTEIN-MINERALS 1 EACH TAB PO SCH (09:20)
--- NOTE | 2016-12-16 10:06 | P.PN ---
Subjective Patient presented with shortness of breath and found to have numerous bilateral PE and a right lower extremity DVT. Evaluated by cardiology Lovenox discontinued and switched over to IV heparin. Patient still having some shortness of breath denies any chest pain denies any leg pain. Denies any nausea or vomiting. Denies any bowel movement changes or urinary symptoms. Patient hasn't had having some small nosebleeds. They have resolved. Reviewed patient's multivitamin no vitamin K listed on her home multivitamin. Awaiting patient's INR to be therapeutic. Continue with the IV heparin. Objective - Vital Signs Vital signs: Vital Signs Temp 97.2 F L 12/16/16 08:00 Pulse 68 12/16/16 08:00 Resp 20 12/16/16 08:00 BP 128/59 12/16/16 08:00 Pulse Ox 94 L 12/16/16 03:59 Intake & Output 12/15/16 12/16/16 12/16/16 18:59 06:59 18:59 Intake Total 362.296 740 236 Output Total 1300 Balance 362.296 -560 236 Weight 117.3 kg 116.3 kg Intake: IV 160 Sodium Chloride 0.9% 1, 160 000 ml @ 20 mls/hr IV . Q24H [facility] Rx#:[id number] Intake, IV Titration 202.296 740 Amount Heparin Sodium,Porcine/ 202.296 500 D5w Pmx 25,000 unit In Dextrose/Water 1 500ml. bag @ 18 UNITS/KG/HR 41. 25 mls/hr IV .Q12H8M [facility] Rx#:[id number] Sodium Chloride 0.9% 1, 240 000 ml @ 20 mls/hr IV . Q24H [facility] Rx#:[id number] Oral 236 Output: Urine 1300 Other: Voiding Method Toilet Toilet Bedside Commode Bedside Commode # Voids 1 1 - Exam Head normocephalic Neck supple Lungs diminished with a few faint wheezes noted anteriorly Heart regular rate and rhythm S1-S2, no rub or gallop Abdomen is soft nontender nondistended positive bowel sounds no hepatosplenomegaly Extremities no edema Neuro alert and orientated to 3 - Labs CBC & Chem 7: 12/16/16 05:55 12/16/16 05:55 Labs: Abnormal Lab Results - Last 24 Hours (Table) 12/16/16 12/16/16 Range/Units 05:55 05:55 PT 12.8 H (9.0-12.0) sec APTT 64.0 H (22.0-30.0) sec Glucose 100 H (74-99) mg/dL AST 44 H (14-36) U/L ALT 73 H (9-52) U/L Total Protein 5.6 L (6.3-8.2) g/dL Albumin 3.1 L (3.5-5.0) g/dL Assessment and Plan Plan: 1. Numerous acute bilateral pulmonary emboli plus right lower extremity DVT. Continue IV heparin until INR therapeutic. INR 1.3. Patient will receive Coumadin 10 mg tonight 2. Elevated troponin and BNP per cardiology secondary to a submassive PE 3. Paroxysmal atrial fibrillation evaluated by cardiology. Patient has had normal sinus rhythm with PACs. Continue with anticoagulation. 4. History of morbid obesity 5. Essential hypertension: blood pressure stable 6. Hyperlipidemia continue Lipitor 7. Moderate pulmonary hypertension noted on echo
[2016-12-16] MEDS: FAMOTIDINE 20 MG TAB PO SCH (12:46)
[2016-12-16] MEDS: CALCIUM CARBONATE 500 MG CHEWABLE PO SCH (12:46)
[2016-12-16] MEDS: CHOLECALCIFEROL 1,000 UNIT TAB PO SCH (12:46)
--- NOTE | 2016-12-16 14:11 | P.PN ---
Subjective Patient is a 76-year-old female who presented to the office on 12/11/2016 with a chief complaint of worsening shortness of breath evaluation in the office revealed evidence of atrial fibrillation with rapid ventricular response which is new to patient she was sent to [facility] emergency room where she was evaluated and was admitted to telemetry floor she was started on subcu Lovenox 1 mg/kg twice daily she was also started on oral Cardizem heart rate was well controlled and actually patient converted to normal sinus rhythm spontaneously however her shortness of breath continued to worsen at that time she had a d-dimer drawn and computed tomography scan of the chest with contrast was done and was positive for bilateral pulmonary embolism she was switched to IV heparin. The patient was further found to have a popliteal DVT in the right lower extremity. The left lower extremity was free of any CLOTS. Echocardiogram was done and the patient was found to have a preserved LV function with an ejection fraction of 50-55%. Her right-sided pulmonary artery pressure is around 59 consistent with moderate degree of pulmonary hypertension. She is feeling better. She is less short of breath. Her cardiac rhythm remains sinus for the time being. On 12/14/2016, the patient is still on IV heparin. There were thinking of approving this patient for Xarelto however the patient had specific wishes not to use this type of oral anticoagulants due to concerns of side effects. She opted to proceed with warfarin. Based on this, I will start the patient on 7.5 g of warfarin today and daily PT/INR monitoring will be done. Meanwhile, the patient is not having any complaints. No chest pain. No cough or sputum production. No hemoptysis. No bleeding complications from IV heparin. No other significant events over the past 24 hours. Echocardiogram results were noted. On 12/15/2016 the patient is on IV heparin. She is doing extremely well. She is on warfarin. She was given 7.5 mg yesterday. The CAT scan of the abdomen came back also clean it was negative for any intra-abdominal malignancies. The patient has no major respiratory distress for now. PT INR remains subtherapeutic. On 2016 the patient remains on IV heparin. INR is still subtherapeutic at 1.3. She is breathing better. No chest pain. No shortness of breath. She is ambulating. She feels much better. No other significant events overnight. We are in the process of anticoagulating this patient with warfarin and hopefully her INR will be therapeutic within the next 24-48 hours. Objective - Vital Signs Vital signs: Vital Signs Temp 98.3 F 12/16/16 12:00 Pulse 68 12/16/16 12:00 Resp 20 12/16/16 12:00 BP 147/69 12/16/16 12:00 Pulse Ox 94 L 12/16/16 03:59 Intake & Output 12/15/16 12/16/16 12/16/16 18:59 06:59 18:59 Intake Total 362.296 740 236 Output Total 1300 226 Balance 362.296 -560 10 Weight 117.3 kg 116.3 kg Intake: IV 160 Sodium Chloride 0.9% 1, 160 000 ml @ 20 mls/hr IV . Q24H [facility] Rx#:[id number] Intake, IV Titration 202.296 740 Amount Heparin Sodium,Porcine/ 202.296 500 D5w Pmx 25,000 unit In Dextrose/Water 1 500ml. bag @ 18 UNITS/KG/HR 41. 25 mls/hr IV .Q12H8M [facility] Rx#:[id number] Sodium Chloride 0.9% 1, 240 000 ml @ 20 mls/hr IV . Q24H [facility] Rx#:[id number] Oral 236 Output: Urine 1300 225 Stool 1 Other: Voiding Method Toilet Toilet Toilet Bedside Commode Bedside Commode Bedside Commode # Voids 1 1 - Exam Morbidly obese, calm and comfortable, in acute distress.Head exam was generally normal. There was no scleral icterus or corneal arcus. Mucous membranes were moist. Neck is short and supple and there is no JVDs no goiter or neck masses and the patient has a Mallampati class IV. Lung sounds are diminished bilaterally otherwise clear. There is no wheezes or rhonchi or any crackles.Cardiac exam revealed the PMI to be normally situated and sized. The rhythm was regular and no extrasystoles were noted during several minutes of auscultation. The first and second heart sounds were normal and physiologic splitting of the second heart sound was noted. There were no murmurs, rubs, clicks, or gallops. Abdomen was obese and orders cannot be accurately palpated. There is no direct tenderness. No rebound tenderness. No guarding.Examination of the extremities revealed easily palpable radial, femoral and pedal pulses. There was no cyanosis, clubbing or edema. - Labs CBC & Chem 7: 12/16/16 05:55 12/16/16 05:55 Labs: Abnormal Lab Results - Last 24 Hours (Table) 12/16/16 12/16/16 Range/Units 05:55 05:55 PT 12.8 H (9.0-12.0) sec APTT 64.0 H (22.0-30.0) sec Glucose 100 H (74-99) mg/dL AST 44 H (14-36) U/L ALT 73 H (9-52) U/L Total Protein 5.6 L (6.3-8.2) g/dL Albumin 3.1 L (3.5-5.0) g/dL Assessment and Plan Plan: Assessment 1 acute bilateral pulmonary embolism with a left lower extremity popliteal DVT, currently on IV heparin, this was an unprovoked event 2 moderate degree of pulmonary hypertension with troponin leak secondary to acute pulmonary embolism 3 paroxysmal atrial fibrillation, currently back to sinus, secondary to acute pulmonary embolism 4 morbid obesity 5 obstructive sleep apnea maintained on CPAP therapy on outpatient basis 6 osteoporosis 7 endometrial cancer with a previous hysterectomy and the patient apparently has been in disease remission 8 hyperlipidemia 9 osteoarthritis Plan The patient is on IV heparin. Warfarin 10 mg today. The patient's INR is 1.3. Repeat PT/INR in the morning. Ablate in the hallway. We'll continue to follow. We'll also assess this patient's oxygenation on room air and assess her need for home O2.
[2016-12-16] MEDS ORDERED: WARFARIN 10 MG TAB PO ONE (18:00)
[2016-12-16] MEDS: SODIUM CHLORIDE 0.9% 1,000 ML IV SCH (18:26)
[2016-12-17 06:22] LABS: Basophils % (A) 1 %; CH 31.5; CHCM 31.8; Eosinophils # (A) 0.6 k/uL (0-0.7); Eosinophils % (A) 6 %; HCT 39.4 % (34.0-46.0); HDW 2.28; HGB 12.5 gm/dL (11.4-16.0); Luc # (Auto) 0.16; Luc % (Auto) 2; Lymphocytes # (A) 1.4 k/uL (1.0-4.8); Lymphocytes % (A) 15 %; MCH 31.6 pg (25.0-35.0); MCHC 31.7 g/dL (31.0-37.0); MCV 99.5 fL (80.0-100.0); Macrocytosis Slight; Mean Platelet Volume 7.5; Monocytes # (A) 0.4 k/uL (0-1.0); Monocytes % (A) 4 %; Neutrophils # (A) 6.7 k/uL (1.3-7.7); Neutrophils % (A) 73 %; RBC 3.96 m/uL (3.80-5.40); RDW 14.1 % (11.5-15.5); WBC 9.2 k/uL (3.8-10.6); WBC (Perox) 9.68
[2016-12-17 06:25] LABS: INR 1.8 (<1.1); Partial Thromboplastin Time 80.9 sec (22.0-30.0); Prothrombin Time 17.5 sec (9.0-12.0)
[2016-12-17 07:16] LABS: ALT 75 U/L (9-52); AST 45 U/L (14-36); Anion Gap 8 mmol/L; Blood Urea Nitrogen 14 mg/dL (7-17); Calcium 9.5 mg/dL (8.4-10.2); Carbon Dioxide 31 mmol/L (22-30); Chloride 103 mmol/L (98-107); Glucose 112 mg/dL (74-99); Non-African American GFR(MDRD) >60 (>60 ml/min/1.73 sqM); Potassium 4.6 mmol/L (3.5-5.1); Sodium 142 mmol/L (137-145); Total Bilirubin 0.5 mg/dL (0.2-1.3); Total Protein 5.8 g/dL (6.3-8.2)
[2016-12-17 07:25] LABS: Alkaline Phosphatase 77 U/L (38-126)
[2016-12-17] MEDS: VIT A,C & E-LUTEIN-MINERALS 1 EACH TAB PO SCH (09:41)
[2016-12-17] MEDS: MELOXICAM 7.5 MG TAB PO SCH (09:41)
[2016-12-17] MEDS: ASPIRIN 325 MG TAB PO SCH (09:41)
[2016-12-17] MEDS: FAMOTIDINE 20 MG TAB PO SCH (09:42)
[2016-12-17] MEDS: LOSARTAN 50 MG TAB PO SCH (09:42)
[2016-12-17] MEDS: HYDROCHLOROTHIAZIDE 12.5 MG CAP PO SCH (09:42)
[2016-12-17] MEDS: DILTIAZEM CD 120 MG CAP.ER.24H PO SCH (09:42)
--- NOTE | 2016-12-17 10:38 | P.PN ---
Subjective Patient presented with shortness of breath and found to have numerous bilateral PE and a right lower extremity DVT. Evaluated by cardiology Lovenox discontinued and switched over to IV heparin. Patient still having some shortness of breath denies any chest pain denies any leg pain. Denies any nausea or vomiting. Denies any bowel movement changes or urinary symptoms. Patient hasn't had having some small nosebleeds. They have resolved. Reviewed patient's multivitamin no vitamin K listed on her home multivitamin. Awaiting patient's INR to be therapeutic. Continue with the IV heparin. 2016 patient's breathing is showing improvement. She is currently off of oxygen. Nursing staff will be checking to see if she tolerates room air. Patient denies any chest pain. Denies any nausea vomiting. Has been having bowel movement. Denies any difficulty urinating. Awaiting INR to therapeutic. Objective - Vital Signs Vital signs: Vital Signs Temp 97.9 F 12/17/16 08:00 Pulse 74 12/17/16 08:00 Resp 18 12/17/16 08:00 BP 146/72 12/17/16 08:00 Pulse Ox 94 L 12/17/16 08:00 Intake & Output 12/16/16 12/17/16 12/17/16 18:59 06:59 18:59 Intake Total 708 240 236 Output Total 228 1404 Balance 480 -1164 236 Weight 116 kg Intake: Oral 708 240 236 Output: Urine 225 1400 Stool 3 4 Other: Voiding Method Toilet Toilet Bedside Commode Bedside Commode # Voids 1 1 - Exam Head normocephalic Neck supple Lungs clear Heart regular rate and rhythm S1-S2, no rub or gallop Abdomen is soft nontender nondistended positive bowel sounds no hepatosplenomegaly Extremities no edema Neuro alert and orientated to 3 - Labs CBC & Chem 7: 12/17/16 05:56 12/17/16 05:56 Labs: Abnormal Lab Results - Last 24 Hours (Table) 12/17/16 12/17/16 Range/Units 05:56 05:56 PT 17.5 H (9.0-12.0) sec APTT 80.9 H (22.0-30.0) sec Carbon Dioxide 31 H (22-30) mmol/L Glucose 112 H (74-99) mg/dL AST 45 H (14-36) U/L ALT 75 H (9-52) U/L Total Protein 5.8 L (6.3-8.2) g/dL Albumin 3.2 L (3.5-5.0) g/dL Assessment and Plan Plan: 1. Numerous acute bilateral pulmonary emboli plus right lower extremity DVT. Continue IV heparin until INR therapeutic. INR 1.8. Patient will receive Coumadin 5mg tonight. Awaiting INR to be therapeutic greater than 2 2. Elevated troponin and BNP per cardiology secondary to a submassive PE 3. Paroxysmal atrial fibrillation evaluated by cardiology. Patient has had normal sinus rhythm with PACs. Continue with anticoagulation. 4. History of morbid obesity 5. Essential hypertension: blood pressure stable 6. Hyperlipidemia continue Lipitor 7. Moderate pulmonary hypertension and troponin leak secondary to acute pulmonary embolism
[2016-12-17] MEDS: CHOLECALCIFEROL 1,000 UNIT TAB PO SCH (12:43)
[2016-12-17] MEDS: CALCIUM CARBONATE 500 MG CHEWABLE PO SCH (12:43)
[2016-12-17] MEDS: HEPARIN SODIUM,PORCINE/D5W PMX 25,000 UNIT in DEXTROSE/WATER 1 500ML.BAG IV SCH ×2 (15:30→15:37)
--- NOTE | 2016-12-17 16:49 | P.PN ---
Subjective This is a very pleasant 76-year-old female patient who was admitted here 2016 for complaints of increasing shortness of breath. She was found to be in atrial fibrillation with a rapid ventricular response. Currently in sinus rhythm. A computed tomography scan of the chest with contrast was done and was positive for bilateral pulmonary embolism. She has been initiated on warfarin. His INR is 1.8. She remains on a heparin drip. She is awake and alert in no acute distress. She denies any worsening shortness of breath, cough or congestion. No hemoptysis. She's been up ambulating in the room without significant dyspnea. Objective - Vital Signs Vital signs: Vital Signs Temp 96.6 F L 12/17/16 12:00 Pulse 73 12/17/16 12:00 Resp 18 12/17/16 12:00 BP 137/67 12/17/16 12:00 Pulse Ox 94 L 12/17/16 12:00 Intake & Output 12/16/16 12/17/16 12/17/16 18:59 06:59 18:59 Intake Total 708 740 472 Output Total 228 1404 2 Balance 480 -664 470 Weight 116 kg Intake: Intake, IV Titration 500 Amount Heparin Sodium,Porcine/ 500 D5w Pmx 25,000 unit In Dextrose/Water 1 500ml. bag @ 18 UNITS/KG/HR 41. 25 mls/hr IV .Q12H8M [facility] Rx#:[id number] Oral 708 240 472 Output: Urine 225 1400 Stool 3 4 2 Other: Voiding Method Toilet Toilet Toilet Bedside Commode Bedside Commode # Voids 1 1 1 - Exam GENERAL EXAM: Alert, active, comfortable in no apparent distress. HEAD: Normocephalic. EYES: Normal reaction of pupils, equal size. NOSE: Clear with pink turbinates. THROAT: No erythema or exudates. NECK: No masses, no JVD. CHEST: No chest wall deformity. LUNGS: Equal air entry with no crackles, wheeze, rhonchi or dullness. CVS: S1 and S2 normal with no audible mumurs, regular rhythm. ABDOMEN: No hepatosplenomegaly, normal bowel sounds, no guarding or rigidity. SPINE: No scoliosis or deformity SKIN: No rashes CENTRAL NERVOUS SYSTEM: No focal deficits, tone is normal in all 4 extremities. Extremities: There is trace peripheral edema. No clubbing, no cyanosis. Peripheral pulses are intact. - Labs CBC & Chem 7: 12/17/16 05:56 12/17/16 05:56 Labs: Abnormal Lab Results - Last 24 Hours (Table) 12/17/16 12/17/16 Range/Units 05:56 05:56 PT 17.5 H (9.0-12.0) sec APTT 80.9 H (22.0-30.0) sec Carbon Dioxide 31 H (22-30) mmol/L Glucose 112 H (74-99) mg/dL AST 45 H (14-36) U/L ALT 75 H (9-52) U/L Total Protein 5.8 L (6.3-8.2) g/dL Albumin 3.2 L (3.5-5.0) g/dL Assessment and Plan Plan: Impression: 1 Acute bilateral pulmonary embolism with a left lower extremity popliteal DVT, currently on IV heparin, this was an unprovoked event 2 Moderate degree of pulmonary hypertension with troponin leak secondary to acute pulmonary embolism 3 Paroxysmal atrial fibrillation, currently back to sinus, secondary to acute pulmonary embolism 4 Morbid obesity 5 Obstructive sleep apnea maintained on CPAP therapy on outpatient basis 6 Osteoporosis 7 Endometrial cancer with a previous hysterectomy and the patient apparently has been in disease remission 8 Hyperlipidemia 9 Osteoarthritis Plan: The patient was seen and evaluated by Dr. Shankar. The patient is stable from the pulmonary standpoint. Once her INR is greater than 2 she could be discharged home. We'll increase her activity as tolerated. We'll continue to follow make further recommendations based on her clinical status.
[2016-12-17] MEDS ORDERED: WARFARIN 5 MG TAB PO ONE (18:00)
[2016-12-17] MEDS: SODIUM CHLORIDE 0.9% 1,000 ML IV SCH (21:08)
[2016-12-18] MEDS: HEPARIN SODIUM,PORCINE/D5W PMX 25,000 UNIT in DEXTROSE/WATER 1 500ML.BAG IV SCH ×2 (00:38→10:04)
[2016-12-18 06:56] LABS: Basophils % (A) 0 %; CH 31.4; CHCM 31.6; Eosinophils # (A) 0.5 k/uL (0-0.7); Eosinophils % (A) 6 %; HCT 40.3 % (34.0-46.0); HDW 2.26; HGB 12.6 gm/dL (11.4-16.0); Luc # (Auto) 0.16; Luc % (Auto) 2; Lymphocytes # (A) 1.3 k/uL (1.0-4.8); Lymphocytes % (A) 16 %; MCH 31.2 pg (25.0-35.0); MCHC 31.2 g/dL (31.0-37.0); Macrocytosis Slight; Mean Platelet Volume 7.2; Monocytes # (A) 0.4 k/uL (0-1.0); Monocytes % (A) 5 %; Neutrophils # (A) 5.7 k/uL (1.3-7.7); Neutrophils % (A) 71 %; RBC 4.03 m/uL (3.80-5.40); RDW 13.9 % (11.5-15.5); WBC 8.1 k/uL (3.8-10.6); WBC (Perox) 8.86
[2016-12-18 07:08] LABS: INR 2.3 (<1.1); Prothrombin Time 22.5 sec (9.0-12.0)
[2016-12-18 07:39] LABS: ALT 72 U/L (9-52); AST 53 U/L (14-36); Alkaline Phosphatase 75 U/L (38-126); Anion Gap 7 mmol/L; Blood Urea Nitrogen 14 mg/dL (7-17); Calcium 9.3 mg/dL (8.4-10.2); Carbon Dioxide 31 mmol/L (22-30); Chloride 104 mmol/L (98-107); Glucose 110 mg/dL (74-99); Non-African American GFR(MDRD) >60 (>60 ml/min/1.73 sqM); Potassium 4.5 mmol/L (3.5-5.1); Sodium 142 mmol/L (137-145); Total Bilirubin 0.5 mg/dL (0.2-1.3); Total Protein 5.7 g/dL (6.3-8.2)
[2016-12-18] MEDS: MELOXICAM 7.5 MG TAB PO SCH (08:22)
[2016-12-18] MEDS: VIT A,C & E-LUTEIN-MINERALS 1 EACH TAB PO SCH (08:22)
[2016-12-18] MEDS: HYDROCHLOROTHIAZIDE 12.5 MG CAP PO SCH (08:22)
[2016-12-18] MEDS: DILTIAZEM CD 120 MG CAP.ER.24H PO SCH (08:22)
[2016-12-18] MEDS: ASPIRIN 325 MG TAB PO SCH (08:22)
[2016-12-18] MEDS: FAMOTIDINE 20 MG TAB PO SCH (08:22)
[2016-12-18] MEDS: LOSARTAN 50 MG TAB PO SCH (08:22)
[2016-12-18] MEDS ORDERED: HEPARIN SODIUM,PORCINE 5,000 UNIT/ML 1 ML VIAL IV PRN (09:51)
[2016-12-18] MEDS: CALCIUM CARBONATE 500 MG CHEWABLE PO SCH (11:39)
[2016-12-18] MEDS: CHOLECALCIFEROL 1,000 UNIT TAB PO SCH (11:39)
[2016-12-18] MEDS: SODIUM CHLORIDE 0.9% 1,000 ML IV SCH (11:45)
--- NOTE | 2016-12-18 12:20 | P.PN ---
Subjective Patient is a 76-year-old female who presented to the office on 12/11/2016 with a chief complaint of worsening shortness of breath evaluation in the office revealed evidence of atrial fibrillation with rapid ventricular response which is new to patient she was sent to [facility] emergency room where she was evaluated and was admitted to telemetry floor she was started on subcu Lovenox 1 mg/kg twice daily she was also started on oral Cardizem heart rate was well controlled and actually patient converted to normal sinus rhythm spontaneously however her shortness of breath continued to worsen at that time she had a d-dimer drawn and computed tomography scan of the chest with contrast was done and was positive for bilateral pulmonary embolism she was switched to IV heparin. The patient was further found to have a popliteal DVT in the right lower extremity. The left lower extremity was free of any CLOTS. Echocardiogram was done and the patient was found to have a preserved LV function with an ejection fraction of 50-55%. Her right-sided pulmonary artery pressure is around 59 consistent with moderate degree of pulmonary hypertension. She is feeling better. She is less short of breath. Her cardiac rhythm remains sinus for the time being. On 12/14/2016, the patient is still on IV heparin. There were thinking of approving this patient for Xarelto however the patient had specific wishes not to use this type of oral anticoagulants due to concerns of side effects. She opted to proceed with warfarin. Based on this, I will start the patient on 7.5 g of warfarin today and daily PT/INR monitoring will be done. Meanwhile, the patient is not having any complaints. No chest pain. No cough or sputum production. No hemoptysis. No bleeding complications from IV heparin. No other significant events over the past 24 hours. Echocardiogram results were noted. On 12/15/2016 the patient is on IV heparin. She is doing extremely well. She is on warfarin. She was given 7.5 mg yesterday. The CAT scan of the abdomen came back also clean it was negative for any intra-abdominal malignancies. The patient has no major respiratory distress for now. PT INR remains subtherapeutic. On 12/16/2016 the patient remains on IV heparin. INR is still subtherapeutic at 1.3. She is breathing better. No chest pain. No shortness of breath. She is ambulating. She feels much better. No other significant events overnight. We are in the process of anticoagulating this patient with warfarin and hopefully her INR will be therapeutic within the next 24-48 hours. On 12/18/2016, the patient is doing well, asymptomatic, room air, therapeutic PT /INR, no specific complaints and ambulating in the hallway without any major difficulties. Objective - Vital Signs Vital signs: Vital Signs Temp 97 F L 12/18/16 08:21 Pulse 65 12/18/16 11:30 Resp 16 12/18/16 11:30 BP 165/71 12/18/16 11:30 Pulse Ox 92 L 12/18/16 11:30 Intake & Output 12/17/16 12/18/16 12/18/16 18:59 06:59 18:59 Intake Total 708 1214.919 264.024 Output Total 2 401 Balance 706 813.919 264.024 Weight 114 kg Intake: IV 160 Sodium Chloride 0.9% 1, 160 000 ml @ 20 mls/hr IV . Q24H [facility] Rx#:[id number] Intake, IV Titration 334.919 264.024 Amount Heparin Sodium,Porcine/ 334.919 264.024 D5w Pmx 25,000 unit In Dextrose/Water 1 500ml. bag @ 18 UNITS/KG/HR 41. 25 mls/hr IV .Q12H8M [facility] Rx#:[id number] Oral 708 720 Output: Urine 400 Stool 2 1 Other: Voiding Method Toilet Toilet Toilet # Voids 1 2 - Exam Morbidly obese, calm and comfortable, in acute distress.Head exam was generally normal. There was no scleral icterus or corneal arcus. Mucous membranes were moist. Neck is short and supple and there is no JVDs no goiter or neck masses and the patient has a Mallampati class IV. Lung sounds are diminished bilaterally otherwise clear. There is no wheezes or rhonchi or any crackles.Cardiac exam revealed the PMI to be normally situated and sized. The rhythm was regular and no extrasystoles were noted during several minutes of auscultation. The first and second heart sounds were normal and physiologic splitting of the second heart sound was noted. There were no murmurs, rubs, clicks, or gallops. Abdomen was obese and orders cannot be accurately palpated. There is no direct tenderness. No rebound tenderness. No guarding.Examination of the extremities revealed easily palpable radial, femoral and pedal pulses. There was no cyanosis, clubbing or edema. - Labs CBC & Chem 7: 12/18/16 06:14 12/18/16 06:14 Labs: Abnormal Lab Results - Last 24 Hours (Table) 12/18/16 12/18/16 Range/Units 06:14 06:14 PT 22.5 H (9.0-12.0) sec APTT 96.0 H* (22.0-30.0) sec Carbon Dioxide 31 H (22-30) mmol/L Glucose 110 H (74-99) mg/dL AST 53 H (14-36) U/L ALT 72 H (9-52) U/L Total Protein 5.7 L (6.3-8.2) g/dL Albumin 3.2 L (3.5-5.0) g/dL Assessment and Plan Plan: Assessment 1 acute bilateral pulmonary embolism with a left lower extremity popliteal DVT, currently on IV heparin, this was an unprovoked event 2 moderate degree of pulmonary hypertension with troponin leak secondary to acute pulmonary embolism 3 paroxysmal atrial fibrillation, currently back to sinus, secondary to acute pulmonary embolism 4 morbid obesity 5 obstructive sleep apnea maintained on CPAP therapy on outpatient basis 6 osteoporosis 7 endometrial cancer with a previous hysterectomy and the patient apparently has been in disease remission 8 hyperlipidemia 9 osteoarthritis Plan Patient has a therapeutic PT/INR. Discharge per medicine. Pulmonary we'll sign off the case. Encourage use of CPAP on outpatient basis regarding obstructive sleep apnea.
--- NOTE | 2016-12-18 12:57 | P.PN ---
Subjective Patient is doing well today. No events overnight. Objective - Vital Signs Vital signs: Vital Signs Temp 97 F L 12/18/16 08:21 Pulse 65 12/18/16 11:30 Resp 16 12/18/16 11:30 BP 165/71 12/18/16 11:30 Pulse Ox 92 L 12/18/16 11:30 Intake & Output 12/17/16 12/18/16 12/18/16 18:59 06:59 18:59 Intake Total 708 1214.919 264.024 Output Total 2 401 Balance 706 813.919 264.024 Weight 114 kg Intake: IV 160 Sodium Chloride 0.9% 1, 160 000 ml @ 20 mls/hr IV . Q24H [facility] Rx#:[id number] Intake, IV Titration 334.919 264.024 Amount Heparin Sodium,Porcine/ 334.919 264.024 D5w Pmx 25,000 unit In Dextrose/Water 1 500ml. bag @ 18 UNITS/KG/HR 41. 25 mls/hr IV .Q12H8M [facility] Rx#:[id number] Oral 708 720 Output: Urine 400 Stool 2 1 Other: Voiding Method Toilet Toilet Toilet # Voids 1 2 - Exam General: The patient is awake and alert, in no distress Eye: there is normal conjunctiva bilaterally. Neck: The neck is supple, there is no JVD. Cardiovascular: Normal S1-S2, no S3-S4, no murmurs. Respiratory: Lungs clear to auscultation bilaterally Gastrointestinal: Abdomen is soft, nontender Musculoskeletal: There is no pedal edema. Neurological:. Speech is normal. Skin: Skin is warm and dry - Labs CBC & Chem 7: 12/18/16 06:14 12/18/16 06:14 Labs: Abnormal Lab Results - Last 24 Hours (Table) 12/18/16 12/18/16 Range/Units 06:14 06:14 PT 22.5 H (9.0-12.0) sec APTT 96.0 H* (22.0-30.0) sec Carbon Dioxide 31 H (22-30) mmol/L Glucose 110 H (74-99) mg/dL AST 53 H (14-36) U/L ALT 72 H (9-52) U/L Total Protein 5.7 L (6.3-8.2) g/dL Albumin 3.2 L (3.5-5.0) g/dL Assessment and Plan Plan: 1. Bilateral pulmonary emboli plus right lower extremity DVT. 2. Elevated troponin and BNP per cardiology secondary to a submassive PE 3. Paroxysmal atrial fibrillation evaluated by cardiology. Patient has had normal sinus rhythm with PACs. Continue with anticoagulation. 4. History of morbid obesity 5. Essential hypertension: blood pressure stable 6. Hyperlipidemia continue Lipitor 7. Moderate pulmonary hypertension and troponin leak secondary to acute pulmonary embolism Patient will continue IV heparin with INR above 2 for 24 hours. Coumadin 5 mg tonight. Anticipate discharge home tomorrow.
[2016-12-18] MEDS ORDERED: WARFARIN 5 MG TAB PO SCH (18:00)
[2016-12-19] MEDS: HEPARIN SODIUM,PORCINE/D5W PMX 25,000 UNIT in DEXTROSE/WATER 1 500ML.BAG IV SCH (04:30)
[2016-12-19 06:33] LABS: Basophils % (A) 1 %; CH 31.9; CHCM 31.9; Eosinophils # (A) 0.5 k/uL (0-0.7); Eosinophils % (A) 7 %; HCT 41.4 % (34.0-46.0); HDW 2.31; HGB 12.7 gm/dL (11.4-16.0); Luc # (Auto) 0.12; Luc % (Auto) 2; Lymphocytes # (A) 1.6 k/uL (1.0-4.8); Lymphocytes % (A) 19 %; MCH 30.8 pg (25.0-35.0); MCHC 30.6 g/dL (31.0-37.0); MCV 100.6 fL (80.0-100.0); Macrocytosis Slight; Mean Platelet Volume 7.8; Monocytes # (A) 0.5 k/uL (0-1.0); Monocytes % (A) 6 %; Neutrophils # (A) 5.4 k/uL (1.3-7.7); Neutrophils % (A) 66 %; RBC 4.12 m/uL (3.80-5.40); WBC 8.1 k/uL (3.8-10.6); WBC (Perox) 8.51
[2016-12-19 06:43] LABS: INR 2.3 (<1.1)
[2016-12-19 06:44] LABS: Partial Thromboplastin Time 82.7 sec (22.0-30.0); Prothrombin Time 21.9 sec (9.0-12.0)
[2016-12-19 07:00] LABS: ALT 77 U/L (9-52); AST 39 U/L (14-36); Alkaline Phosphatase 77 U/L (38-126); Anion Gap 6 mmol/L; Blood Urea Nitrogen 15 mg/dL (7-17); Calcium 9.5 mg/dL (8.4-10.2); Carbon Dioxide 32 mmol/L (22-30); Chloride 104 mmol/L (98-107); Glucose 103 mg/dL (74-99); Non-African American GFR(MDRD) >60 (>60 ml/min/1.73 sqM); Potassium 4.8 mmol/L (3.5-5.1); Sodium 142 mmol/L (137-145); Total Bilirubin 0.5 mg/dL (0.2-1.3); Total Protein 5.8 g/dL (6.3-8.2)
[2016-12-19 08:56] VITALS: BP 143/65; PULSE 71; RESP 16; TEMP 98.4
[2016-12-19] MEDS ORDERED: diphenhydrAMINE 25 MG CAP PO STA (08:57)
[2016-12-19] MEDS: HYDROCHLOROTHIAZIDE 12.5 MG CAP PO SCH (09:58)
[2016-12-19] MEDS: ASPIRIN 325 MG TAB PO SCH (09:58)
[2016-12-19] MEDS: FAMOTIDINE 20 MG TAB PO SCH (09:58)
[2016-12-19] MEDS: VIT A,C & E-LUTEIN-MINERALS 1 EACH TAB PO SCH (09:58)
[2016-12-19] MEDS: DILTIAZEM CD 120 MG CAP.ER.24H PO SCH (09:58)
[2016-12-19] MEDS: MELOXICAM 7.5 MG TAB PO SCH (09:58)
[2016-12-19] MEDS: LOSARTAN 50 MG TAB PO SCH (09:58)
--- NOTE | 2016-12-19 11:20 | P.DS ---
Providers Date of admission: 12/11/16 14:52 Expected date of discharge: 12/19/16 Attending physician: Mae Pena Consults: 12/12/16 01:48 Consult Physician Routine Consulting Provider: Kb Jensen Consult Reason/Comments: Pulmonary Embolism Do you want consulting provider notified?: Yes, Notify in am Primary care physician: Mae Pena [facility] Course: This is a 76-year-old female who presented to the hospital originally with worsening shortness of breath, palpitation, and chest pressure. Patient was found to be in atrial fibrillation with RVR. She was also found to have bilateral pulmonary emboli. Patient was started on anticoagulation with IV heparin. She was seen and evaluated by cardiology and pulmonology. She was bridged with Coumadin and her INR was therapeutic for 24 hours. She'll be discharged home in a stable condition. Below is a list of medical problems addressed during this hospitalization. 1. Bilateral pulmonary emboli and right lower extremity DVT. 2. Elevated troponin and BNP per cardiology secondary to a submassive PE 3. Paroxysmal atrial fibrillation evaluated by cardiology. Patient has had normal sinus rhythm with PACs. Continue with anticoagulation. 4. History of morbid obesity 5. Essential hypertension: blood pressure stable 6. Hyperlipidemia continue Lipitor 7. Moderate pulmonary hypertension and troponin leak secondary to acute pulmonary embolism Patient Condition at Discharge: Fair Plan - Discharge Summary New Discharge Prescriptions: Diltiazem Cd [Cardizem CD] 120 mg PO DAILY #30 cap.er.24h Warfarin Sodium [Coumadin] 5 mg PO HS #30 tablet Discharge Medication List Alendronate Sodium 70 mg PO TU 12/11/16 [History] Atorvastatin Calcium [Lipitor] 10 mg PO DAILY 12/11/16 [History] Calcium Carbonate [Calcium] 600 mg PO DAILY 12/11/16 [History] Cholecalciferol [Vitamin D3] 1,000 unit PO DAILY 12/11/16 [History] Meloxicam 15 mg PO DAILY 12/11/16 [History] Nystatin 100,000Unit/gm Cream [Mycostatin Cream] 1 applic TOPICAL BID PRN [History] Olmesartan/Hydrochlorothiazide [Benicar Hct 20-12.5 mg Tablet] 1 tab PO DAILY [History] Vit A,C & I-Bikbtp-Emnebmgk [Ivite] 1 tab PO DAILY 12/11/16 [History] Diltiazem Cd [Cardizem CD] 120 mg PO DAILY #30 cap.er.24h 12/19/16 [Rx] Warfarin Sodium [Coumadin] 5 mg PO HS #30 tablet 12/19/16 [Rx] Follow up Appointment(s)/Referral(s): Mae Pena MD [Primary Care Provider] - 3 Days Activity/Diet/Wound Care/Special Instructions: [facility]-[phone] Discharge Disposition: HOME WITH HOME HEALTH SERVICES
== END 2016-12-19 12:41 | disposition home health service (06) | DRG 308 ==
LOC: EC 11:47 → 6SEL 14:52
PROVIDERS: ADMIT Internal Medicine; ATTEND Internal Medicine
DX: I48.0 Paroxysmal atrial fibrillation (principal); I26.99 Other pulmonary embolism without acute cor pulmonale; I82.431 Acute embolism and thrombosis of right popliteal vein; I27.2 Other secondary pulmonary hypertension; I49.3 Ventricular premature depolarization; R74.8 Abnormal levels of other serum enzymes; T46.6X5A Adverse effect of antihyperlipidemic and antiarteriosclerotic drugs, initial encounter; I49.1 Atrial premature depolarization; I10 Essential (primary) hypertension; R79.89 Other specified abnormal findings of blood chemistry; G47.33 Obstructive sleep apnea (adult) (pediatric); E78.5 Hyperlipidemia, unspecified; M19.90 Unspecified osteoarthritis, unspecified site; M81.0 Age-related osteoporosis without current pathological fracture; R53.1 Weakness; Z90.710 Acquired absence of both cervix and uterus; Z96.652 Presence of left artificial knee joint; Z82.49 Family history of ischemic heart disease and other diseases of the circulatory system; Z80.1 Family history of malignant neoplasm of trachea, bronchus and lung; Z80.7 Family history of other malignant neoplasms of lymphoid, hematopoietic and related tissues; Z85.42 Personal history of malignant neoplasm of other parts of uterus; Z88.0 Allergy status to penicillin; Z88.2 Allergy status to sulfonamides; Z91.02 Food additives allergy status; Z79.83 Long term (current) use of bisphosphonates; Z79.1 Long term (current) use of non-steroidal anti-inflammatories (NSAID); Z79.899 Other long term (current) drug therapy
CPT/HCPCS: 36415; 71010; 71275; 74177; 80053; 80061; 82550; 82553; 83735; 83880; 84484; 85025; 85379; 85610; 85730; 93005; 93306; 93970; 94660; 99285

== ENCOUNTER → 2017-06-21 | Outpatient (CLI) | payer MEDICARE ==
--- NOTE | 2017-06-22 12:17 | MM ---
Reason for exam: screening (asymptomatic). Last mammogram was performed 1 year and 3 months ago. History: Patient is postmenopausal and has history of endometrial cancer at age 64. Family history of breast cancer in maternal grandmother at age 80. Cancelled Left US Needle Biopsy of the left breast, February 07, 2008. Benign excisional biopsy of the left breast, September 27, 1997. Excisional biopsy of the left breast, 1996. Excisional biopsy of the left breast. Physical Findings: A clinical breast exam by your physician is recommended on an annual basis and results should be correlated with mammographic findings. MG 3D Screening Mammo W/Cad Bilateral CC and MLO view(s) were taken. Prior study comparison: March 30, 2016, bilateral MG 3d diag mammo w/cad FABBY. March 03, 2015, right breast MG diagnostic mammo RT w CAD. May 24, 2014, bilateral MG screening mammo w CAD. May 21, 2013, CAD bilateral diagnostic mammogram. May 19, 2012, bilateral digital screening mammo w/CAD. There are scattered fibroglandular densities. Benign calcifications bilaterally. No significant changes when compared with prior studies. ASSESSMENT: Benign, BI-RAD 2 RECOMMENDATION: Routine screening mammogram of both breasts in 1 year.
== END | disposition home or self-care (01) ==
LOC: RADMAMWWP 08:39
PROVIDERS: ATTEND Internal Medicine
DX: Z12.31 Encounter for screening mammogram for malignant neoplasm of breast (principal)
CPT/HCPCS: 77063; G0202

== ENCOUNTER → 2019-02-28 | Outpatient (CLI) | payer MEDICARE ==
--- NOTE | 2019-02-28 22:43 | BD ---
EXAMINATION TYPE: Axial Bone Density DATE OF EXAM: 02/28/2019 COMPARISON: CLINICAL HISTORY: Height: 61.5 inches Weight: 253 FRAX RISK QUESTIONS: Alcohol (3 or more units per day): no Family History (Parent hip fracture): mother broke femur & pelvis in [place] Glucocorticoids (More than 3mos): no (Ex: prednisone, prednisolone, methylprednisolone, dexamethasone, and hydrocortisone). History of Fracture in Adulthood: no Secondary Osteoporosis: 1. Type 1 Diabetes: no 2. Hyperthyroidism: not now, thyroid levels good 3. Menopause before 45: no 4. Malnutrition: no 5. Chronic liver disease: no Rheumatoid Arthritis: no Current Tobacco Use: no RISK FACTORS HISTORY OF: Surgery to Spine: yes When: about 2003 Family History of Osteoporosis: yes Active: yes Diet low in dairy products/other sources of calcium: no Postmenopausal woman: yes Take estrogen and/or progesterone medications: not now How long: unsure Lost more than 2 inches in height since high school: yes Frequent falls: no Poor Health: no Hyperparathyroidism: no Adrenal Insufficiency: no MEDICATIONS: Prednisone or other steroids: no Thyroid Medications: yes Which medication: Levothyroxine How Long: at least 3 years Osteoporosis Medications: not now Which medication: Fosamax stopped 2016 How Long: over 10 years Additional Medications: calcium; Lipitor, Olmesartan Medox/HCTZ, Cartia(Diltiazem), Wararin Additional History: knee replacement; endometrial CA age 64, pre-diabetic, sleep apnea,thyroid has be en "killed", escobar in back EXAM MEASUREMENTS: Bone mineral densitometry was performed using the [employer] System. Bone mineral density NOT measured about the Lumbar spine due to back surgery Bone mineral density about the R hip (g/cm2): 0.825 Bone mineral density about the L hip (g/cm2): 0.883 T Score values are as follows: -----R Neck: -1.5 -----L Neck: -1.1 -----R Total: 0.1 -----L Total: 0.0 Bone mineral density has: Decreased -3.1% since study of: 03/30/2016 Bone mineral density about the L Wrist (g/cm2): 0.663 T Score values are as follows: -----Dist. R+U: 0.1 -----Prox. R+U: -0.2 -----Radius total: -0.2 Bone mineral density not previously done on forearm IMPRESSION: Osteopenia (T Score between -2.5 and -1). There is slightly increased risk of fracture and the patient may be considered for treatment. Re-Screen 2-5 years. NOTE: T-SCORE=SD OF THE YOUNG ADULT MEAN.
--- NOTE | 2019-03-01 11:53 | MM ---
Reason for exam: screening (asymptomatic). Last mammogram was performed 1 year and 8 months ago. History: Patient is postmenopausal and has history of endometrial cancer at age 64. Family history of breast cancer in maternal grandmother at age 80. Cancelled Left US Needle Biopsy of the left breast, February 07, 2008. Benign excisional biopsy of the left breast, September 27, 1997. Excisional biopsy of the left breast, 1996. Excisional biopsy of the left breast. Physical Findings: A clinical breast exam by your physician is recommended on an annual basis and results should be correlated with mammographic findings. MG 3D Screening Mammo W/Cad Bilateral CC and MLO view(s) were taken. Prior study comparison: June 21, 2017, bilateral MG 3d screening mammo w/cad. March 30, 2016, bilateral MG 3d diag mammo w/cad FABBY. The breast tissue is heterogeneously dense. This may lower the sensitivity of mammography. Vascular and secretory calcifications. No significant changes when compared with prior studies. ASSESSMENT: Benign, BI-RAD 2 RECOMMENDATION: Routine screening mammogram of both breasts in 1 year.
== END | disposition home or self-care (01) ==
LOC: RADBDWWP 12:23
PROVIDERS: ATTEND Internal Medicine
DX: Z12.31 Encounter for screening mammogram for malignant neoplasm of breast (principal); M85.88 Other specified disorders of bone density and structure, other site
CPT/HCPCS: 77063; 77067; 77080

== ENCOUNTER 2020-03-13 13:31 | Emergency (ER) | payer MEDICARE ==
[2020-03-13 13:37] VITALS: TEMP 98.4
[2020-03-13] MEDS ORDERED: SODIUM CHLORIDE 0.9% 500 ML 500 ML IV STA (14:18)
[2020-03-13 15:09] VITALS: PULSE 80; RESP 20
[2020-03-13 15:13] LABS: Basophils # (A) 0.1 k/uL (0-0.2); Basophils % (A) 1 %; Eosinophils # (A) 0.2 k/uL (0-0.7); Eosinophils % (A) 2 %; HCT 46.8 % (34.0-46.0); HGB 14.9 gm/dL (11.4-16.0); Lymphocytes # (A) 1.1 k/uL (1.0-4.8); Lymphocytes % (A) 11 %; MCH 31.1 pg (25.0-35.0); MCHC 31.9 g/dL (31.0-37.0); MCV 97.5 fL (80.0-100.0); Mean Platelet Volume 7.5; Monocytes # (A) 0.6 k/uL (0-1.0); Monocytes % (A) 6 %; Neutrophils # (A) 7.6 k/uL (1.3-7.7); Neutrophils % (A) 77 %; Platelet Count 247 k/uL (150-450); RDW 13.2 % (11.5-15.5); WBC 9.9 k/uL (3.8-10.6)
--- NOTE | 2020-03-13 15:18 | ED ---
Dizziness HPI - General Chief Complaint: Dizziness Stated Complaint: Dizzy Time Seen by Provider: 03/13/20 14:00 Source: patient Mode of arrival: ambulatory Limitations: no limitations - History of Present Illness Initial Comments: Patient is a 80-year-old female presenting to the emergency Department with complaints of dizziness 3 days. She describes this as more of a lightheadedness that has been intermittent for the past 3 days. She denies any falls or trauma. She states she thinks she may have had vertigo many years ago. She states these episodes can come on when she is sitting still. She does admit to an increase in symptoms with head turning. She does not specify one way or the other. She denies any nausea, vomiting, abdominal pain, chest pain, shortness of breath. She denies any recent fever or chills. She has any urinary complaints. She denies any muscle weakness. She denies any headaches or vision changes. She has no other complaints. Upon arrival to the ER, her vital signs are stable. - Related Data Home Medications Medication Instructions Recorded Confirmed Alendronate Sodium 70 mg PO TU 12/11/16 12/11/16 Atorvastatin Calcium [Lipitor] 10 mg PO DAILY 12/11/16 12/11/16 Calcium Carbonate [Calcium] 600 mg PO DAILY 12/11/16 12/11/16 Cholecalciferol [Vitamin D3 (25 1,000 unit PO DAILY 12/11/16 12/11/16 Mcg = 1000 Iu)] Meloxicam 15 mg PO DAILY 12/11/16 12/11/16 Nystatin 100,000Unit/gm Cream 1 applic TOPICAL BID PRN 12/11/16 12/11/16 [Mycostatin Cream] Olmesartan/Hydrochlorothiazide 1 tab PO DAILY 12/11/16 12/11/16 [Benicar Hct 20-12.5 mg Tablet] Vit A,C & S-Xmroiy-Vqjlrjoi [Ivite] 1 tab PO DAILY 12/11/16 12/11/16 Previous Rx's Medication Instructions Recorded Diltiazem Cd [Cardizem CD] 120 mg PO DAILY #30 cap.er.24h 12/19/16 Warfarin Sodium [Coumadin] 5 mg PO HS #30 tablet 12/19/16 Allergies Allergy/AdvReac Type Severity Reaction Status Date / Time monosodium glutamate [MSG] Allergy Unknown Verified 03/13/20 13:37 Penicillins Allergy Anaphylaxis Verified 03/13/20 13:37 Sulfa (Sulfonamide Allergy Anaphylaxis Verified 03/13/20 13:37 Antibiotics) Review of Systems ROS Statement: Those systems with pertinent positive or pertinent negative responses have been documented in the HPI. ROS Other: All systems not noted in ROS Statement are negative. Past Medical History Past Medical History: Hypertension Additional Past Medical History / Comment(s): obesity, CHAN and the patient is currently on CPAP, HTN, osteoporosis, hyperlipidemia, endometrial cancer and she had hysterectomy, osteoporosis History of Any Multi-Drug Resistant Organisms: None Reported Past Surgical History: Back Surgery, Joint Replacement Additional Past Surgical History / Comment(s): left knee replacement (2011) Past Psychological History: No Psychological Hx Reported Smoking Status: Never smoker Past Alcohol Use History: Occasional Past Drug Use History: None Reported - Past Family History Father Family Medical History: Myocardial Infarction ([place]) Additional Family Medical History / Comment(s): Lung cancer, Lymphoma, Mother Family Medical History: Congestive Heart Failure (CHF) General Exam - General Exam Comments Initial Comments: GENERAL: Well-appearing, well-nourished and in no acute distress. HEAD: Atraumatic, normocephalic. EYES: Pupils equal round and reactive to light, extraocular movements intact, sclera anicteric, conjunctiva are normal. ENT: TMs normal, nares patent, oropharynx clear without exudates. Moist mucous membranes. NECK: Normal range of motion, supple without lymphadenopathy or JVD. LUNGS: Breath sounds clear to auscultation bilaterally and equal. No wheezes rales or rhonchi. HEART: Regular rate and rhythm without murmurs, rubs or gallops. ABDOMEN: Soft, nontender, normoactive bowel sounds. No guarding, no rebound. No masses appreciated. : Deferred EXTREMITIES: Normal range of motion, no pitting or edema. No clubbing or cyanosis. Patient's strength is 5 out of 5 in upper and lower extremities. Sensation is equal and bilateral upper and lower extremity is. NEUROLOGICAL: Cranial nerves II through XII grossly intact. Normal speech, normal gait. PSYCH: Normal mood, normal affect. SKIN: Warm, Dry, normal turgor, no rashes or lesions noted. Limitations: no limitations Course Vital Signs 04/30/20 04/30/20 04/30/20 13:32 13:37 14:37 Temperature 98.4 F Pulse Rate 93 80 Respiratory 18 20 20 Rate Blood Pressure 141/74 142/83 O2 Sat by Pulse 96 96 Oximetry 03/13/20 03/13/20 15:00 16:50 Temperature Pulse Rate 80 80 Respiratory 20 20 Rate Blood Pressure 142/83 133/77 O2 Sat by Pulse 96 95 Oximetry EKG Findings - EKG Comments: EKG Findings:: Ventricular rate 76, P on arrival 182, QTC 443. Sinus rhythm with marked sinus arrhythmia, no acute ST segment changes. Medical Decision Making - Medical Decision Making Patient is a 80-year-old female presenting with lightheadedness episodes 3 days. Her vitals are stable, her exam is unremarkable. In the ER, she is currently asymptomatic. Patient's lab work shows no acute findings, her INR is 2.8. Her urine is normal. EKG shows no acute changes. I discussed these results with the patient. Her symptoms may be related to mild vertigo. I did attempt an eply manuver. She has remained asymptomatic. Patient is stable for discharge. I did recommend follow-up with ENT as symptoms persist. She is in agreement with this plan of care. Return parameters were discussed with the patient she verbalized understanding. - Lab Data Result diagrams: 03/13/20 14:50 03/13/20 14:50 Lab Results 03/13/20 03/13/20 03/13/20 Range/Units 14:50 14:50 14:50 WBC 9.9 (3.8-10.6) k/uL RBC 4.80 (3.80-5.40) m/uL Hgb 14.9 (11.4-16.0) gm/dL Hct 46.8 H (34.0-46.0) % MCV 97.5 (80.0-100.0) fL MCH 31.1 (25.0-35.0) pg MCHC 31.9 (31.0-37.0) g/dL RDW 13.2 (11.5-15.5) % Plt Count 247 (150-450) k/uL Neutrophils % 77 % Lymphocytes % 11 % Monocytes % 6 % Eosinophils % 2 % Basophils % 1 % Neutrophils # 7.6 (1.3-7.7) k/uL Lymphocytes # 1.1 (1.0-4.8) k/uL Monocytes # 0.6 (0-1.0) k/uL Eosinophils # 0.2 (0-0.7) k/uL Basophils # 0.1 (0-0.2) k/uL PT 27.1 H (9.0-12.0) sec INR 2.8 H (<1.2) Sodium 138 (137-145) mmol/L Potassium 4.2 (3.5-5.1) mmol/L Chloride 103 (98-107) mmol/L Carbon Dioxide 29 (22-30) mmol/L Anion Gap 6 mmol/L BUN 16 (7-17) mg/dL Creatinine 0.71 (0.52-1.04) mg/dL Est GFR (CKD-EPI)AfAm >90 (>60 ml/min/1.73 sqM) Est GFR (CKD-EPI)NonAf 82 (>60 ml/min/1.73 sqM) Glucose 115 H (74-99) mg/dL Calcium 9.6 (8.4-10.2) mg/dL Total Bilirubin 0.5 (0.2-1.3) mg/dL AST 28 (14-36) U/L ALT 16 (4-34) U/L Alkaline Phosphatase 69 (38-126) U/L Total Protein 7.0 (6.3-8.2) g/dL Albumin 4.1 (3.5-5.0) g/dL Urine Color Urine Appearance (Clear) Urine pH (5.0-8.0) Ur Specific [place] (1.001-1.035) Urine Protein (Negative) Urine Glucose (UA) (Negative) Urine Ketones (Negative) Urine Blood (Negative) Urine Nitrite (Negative) Urine Bilirubin (Negative) Urine Urobilinogen (<2.0) mg/dL Ur Leukocyte Esterase (Negative) 03/13/20 Range/Units 16:05 WBC (3.8-10.6) k/uL RBC (3.80-5.40) m/uL Hgb (11.4-16.0) gm/dL Hct (34.0-46.0) % MCV (80.0-100.0) fL MCH (25.0-35.0) pg MCHC (31.0-37.0) g/dL RDW (11.5-15.5) % Plt Count (150-450) k/uL Neutrophils % % Lymphocytes % % Monocytes % % Eosinophils % % Basophils % % Neutrophils # (1.3-7.7) k/uL Lymphocytes # (1.0-4.8) k/uL Monocytes # (0-1.0) k/uL Eosinophils # (0-0.7) k/uL Basophils # (0-0.2) k/uL PT (9.0-12.0) sec INR (<1.2) Sodium (137-145) mmol/L Potassium (3.5-5.1) mmol/L Chloride (98-107) mmol/L Carbon Dioxide (22-30) mmol/L Anion Gap mmol/L BUN (7-17) mg/dL Creatinine (0.52-1.04) mg/dL Est GFR (CKD-EPI)AfAm (>60 ml/min/1.73 sqM) Est GFR (CKD-EPI)NonAf (>60 ml/min/1.73 sqM) Glucose (74-99) mg/dL Calcium (8.4-10.2) mg/dL Total Bilirubin (0.2-1.3) mg/dL AST (14-36) U/L ALT (4-34) U/L Alkaline Phosphatase (38-126) U/L Total Protein (6.3-8.2) g/dL Albumin (3.5-5.0) g/dL Urine Color Yellow Urine Appearance Clear (Clear) Urine pH 7.0 (5.0-8.0) Ur Specific [place] 1.010 (1.001-1.035) Urine Protein Negative (Negative) Urine Glucose (UA) Negative (Negative) Urine Ketones Negative (Negative) Urine Blood Negative (Negative) Urine Nitrite Negative (Negative) Urine Bilirubin Negative (Negative) Urine Urobilinogen <2.0 (<2.0) mg/dL Ur Leukocyte Esterase Negative (Negative) Disposition Clinical Impression: Vertigo, Light headedness Disposition: HOME SELF-CARE Condition: Stable Instructions (If sedation given, give patient instructions): Vertigo (ED) Additional Instructions: Please return to the Emergency Department if symptoms worsen or any other concerns. Continue to increase water intake. Follow-up with PCP or ENT if symptoms persist. Is patient prescribed a controlled substance at d/c from ED?: No Referrals: Mae Pena MD [Primary Care Provider] - 1-2 days Clayton Lake MD [STAFF PHYSICIAN] - 1-2 days
[2020-03-13 15:20] LABS: ALT 16 U/L (4-34); AST 28 U/L (14-36); African American GFR (CKD) >90 (>60 ml/min/1.73 sqM); Albumin 4.1 g/dL (3.5-5.0); Alkaline Phosphatase 69 U/L (38-126); Anion Gap 6 mmol/L; Blood Urea Nitrogen 16 mg/dL (7-17); Calcium 9.6 mg/dL (8.4-10.2); Carbon Dioxide 29 mmol/L (22-30); Chloride 103 mmol/L (98-107); Glucose 115 mg/dL (74-99); Non-African American GFR(CKD) 82 (>60 ml/min/1.73 sqM); Potassium 4.2 mmol/L (3.5-5.1); Sodium 138 mmol/L (137-145); Total Bilirubin 0.5 mg/dL (0.2-1.3)
[2020-03-13 15:30] LABS: INR 2.8 (<1.2); Prothrombin Time 27.1 sec (9.0-12.0)
[2020-03-13 16:20] LABS: Appearance,Urine Clear (Clear); Bilirubin,Urine Negative (Negative); Blood,Urine Negative (Negative); Color,Urine Yellow; Glucose,Urine (UA) Negative (Negative); Ketones,Urine Negative (Negative); Leukocyte Esterase,Urine Negative (Negative); Nitrite,Urine Negative (Negative); Protein,Urine Negative (Negative); Urobilinogen,Urine <2.0 mg/dL (<2.0)
[2020-03-13 16:51] VITALS: BP 133/77
== END 2020-03-13 16:55 | disposition home or self-care (01) ==
LOC: EC 13:31
DX: R42 Dizziness and giddiness (principal); I10 Essential (primary) hypertension; G47.33 Obstructive sleep apnea (adult) (pediatric); E78.5 Hyperlipidemia, unspecified; E66.9 Obesity, unspecified; Z68.41 Body mass index [BMI] 40.0-44.9, adult; Z79.899 Other long term (current) drug therapy; Z79.1 Long term (current) use of non-steroidal anti-inflammatories (NSAID); Z88.0 Allergy status to penicillin; Z88.2 Allergy status to sulfonamides; Z91.02 Food additives allergy status; Z96.652 Presence of left artificial knee joint; Z85.42 Personal history of malignant neoplasm of other parts of uterus; Z90.710 Acquired absence of both cervix and uterus; Z99.89 Dependence on other enabling machines and devices
CPT/HCPCS: 36415; 80053; 81003; 85025; 85610; 93005; 99284

== ENCOUNTER → 2020-06-17 | Outpatient (CLI) | payer MEDICARE ==
--- NOTE | 2020-06-23 12:08 | MM ---
Reason for exam: screening (asymptomatic). Last mammogram was performed 1 year and 4 months ago. History: Patient is postmenopausal and has history of endometrial cancer at age 64. Family history of breast cancer in maternal grandmother at age 80. Cancelled Left US Needle Biopsy of the left breast, February 07, 2008. Benign excisional biopsy of the left breast, September 27, 1997. Excisional biopsy of the left breast, 1996. Excisional biopsy of the left breast. Physical Findings: A clinical breast exam by your physician is recommended on an annual basis and results should be correlated with mammographic findings. MG 3D Screening Mammo W/Cad Bilateral CC and MLO view(s) were taken. Prior study comparison: February 28, 2019, bilateral MG 3d screening mammo w/cad. June 21, 2017, bilateral MG 3d screening mammo w/cad. The breast tissue is heterogeneously dense. This may lower the sensitivity of mammography. There are benign appearing round linear vascular calcifications bilaterally. There is no discrete abnormality. ASSESSMENT: Benign, BI-RAD 2 RECOMMENDATION: Routine screening mammogram of both breasts in 1 year.
== END | disposition home or self-care (01) ==
LOC: RADMAMWWP 13:25
PROVIDERS: ATTEND Internal Medicine
DX: Z12.31 Encounter for screening mammogram for malignant neoplasm of breast (principal)
CPT/HCPCS: 77063; 77067

== ENCOUNTER → 2021-10-28 | Outpatient (CLI) | payer MEDICARE ==
--- NOTE | 2021-10-28 11:40 | XR ---
EXAMINATION TYPE: XR chest 2V DATE OF EXAM: 10/28/2021 COMPARISON: 12/11/2016 TECHNIQUE: PA and lateral views submitted. HISTORY: Shortness of breath FINDINGS: Right perihilar subsegmental changes. No pneumothorax or pleural effusion.. Limited inspiration with coarsened interstitium and suspected right upper lobe calcified granuloma. IMPRESSION: 1. Correlate for chronic interstitial lung disease. A mild bronchitis or interstitial pneumonitis in the differential diagnosis. 2. Right perihilar subsegmental atelectasis or early infiltrate..
== END | disposition home or self-care (01) ==
LOC: RADXRMAIN 11:11
PROVIDERS: ATTEND Internal Medicine
DX: R06.02 Shortness of breath (principal)
CPT/HCPCS: 71046

== ENCOUNTER → 2022-04-15 | Outpatient (CLI) | payer MEDICARE ==
--- NOTE | 2022-04-16 15:33 | MM ---
Reason for Exam: Screening (asymptomatic). Last mammogram was performed 1 year(s) and 10 month(s) ago. Patient History: Menarche at age 13. First Full-Term at age 23. Left ovary removed at age 64. Right ovary removed at age 64. Hysterectomy at age 64. Postmenopausal. Endometrial cancer, age 64. Excisional Biopsy on the Left side. 1996, Excisional Biopsy on the Left side. 09/27/1997, Benign Excisional Biopsy on the left side. 02/07/2008, Cancelled Left US Needle Biopsy on the left side. Maternal grandmother had breast cancer, age 80. Risk Values: Sweta 5 year model risk: 2.2%. NCI Lifetime model risk: 3.1%. Prior Study Comparison: 06/21/2017 Bilateral Screening Mammogram, [facility]. 02/28/2019 Bilateral Screening Mammogram, [facility]. 06/17/2020 Bilateral Screening Mammogram, [facility]. Tissue Density: There are scattered fibroglandular densities. Findings: Analyzed By CAD. Scattered benign-appearing calcifications present bilaterally. Benign vascular calcifications present. No suspicious spiculated or lobular masses, cluster microcalcifications, architectural distortion, or other secondary signs of malignancy are radiographically apparent. Overall Assessment: Benign, BI-RAD 2 Management: Screening Mammogram of both breasts in 1 year. A clinical breast exam by your physician is recommended on an annual basis and results should be correlated with mammographic findings. Electronically signed and approved by: Vivek Oreilly D.O. Radiologis
--- NOTE | 2022-04-16 16:22 | BD ---
EXAMINATION TYPE: Axial Bone Density DATE OF EXAM: 04/15/2022 COMPARISON: 02/28/2019 CLINICAL HISTORY: 82 years year old Female. ICD-10 CODE: Z78.0 ASYMPTOMATIC MENOPAUSAL STATE Height: 61 IN Weight: 254 LBS FRAX RISK QUESTIONS: Secondary Osteoporosis: RISK FACTORS HISTORY OF: Surgery to Spine: YES L SPINE SURGERY 2007 Family History of Osteoporosis: YES FATHER Active: LIMITED Postmenopausal woman: AGE 56 Lost more than 2 inches in height since high school: YES 11/15" MEDICATIONS: Thyroid Medications: YES Which medication: Levothyroxine How Lon YEARS Osteoporosis Medications: NOT NOW Which medication: Fosamax How Lon YEARS Additional Medications: CALCIUM, VIT D, LEVOTHYROXINE, CARDIZEM, BLOOD PRESSURE MEDS, LIPITOR, WARFAR IN, EXAM MEASUREMENTS: Bone mineral densitometry was performed using the [employer]. L SPINE SURGERY 2007 Bone mineral density about the R hip (g/cm2): 0.803 Bone mineral density about the L hip (g/cm2): 0.791 T Score values are as follows: -----R Neck: -1.7 -----L Neck: -1.8 -----R Total: 0.0 -----L Total: -0.2 Bone mineral density has: Decreased -2.5% since study of: 02/28/2019 Bone mineral density about the L Wrist (g/cm2): 0.680 T Score values are as follows: -----Dist. R+U: 0.8 -----Prox. R+U: -0.6 -----Radius total: 0.1 Bone mineral density has: Decreased -4.3% since study of: 02/28/2019 FRAX%s: The graph provided illustrates a 21.4 chance for a major osteoporotic fx and a 12.4 chance fo r the hips probability for fx in 10 years time. IMPRESSION: Osteopenia (T Score between -2.5 and -1). There is slightly increased risk of fracture and the patient may be considered for treatment. Re-Screen 2-5 years. NOTE: T-SCORE=SD OF THE YOUNG ADULT MEAN.
== END | disposition home or self-care (01) ==
LOC: RADMAMWWP 14:10
PROVIDERS: ATTEND Internal Medicine
DX: Z12.31 Encounter for screening mammogram for malignant neoplasm of breast (principal); M85.89 Other specified disorders of bone density and structure, multiple sites; Z78.0 Asymptomatic menopausal state; Z80.3 Family history of malignant neoplasm of breast
CPT/HCPCS: 77063; 77067; 77080

== ENCOUNTER 2022-06-02 09:58 | Emergency (ER) | payer MEDICARE ==
[2022-06-02 10:04] VITALS: BP 151/81; PULSE 88; RESP 16; TEMP 98.7
--- NOTE | 2022-06-02 10:05 | ED ---
General Adult HPI - General Chief complaint: Urogenital Stated complaint: Groin Pain Time Seen by Provider: 06/02/22 10:03 Source: patient, family, EMS, RN notes reviewed Mode of arrival: EMS Limitations: no limitations - History of Present Illness Initial comments: He says an 82-year-old female presents the emergency room via EMS with complaints of difficulty ambulating today. She reports that she was having pain in both legs that is intense when attempting to walk in the groin region without radiculopathy down the legs. She denies any overt weakness but does limit her range of motion due to pain along with body habitus. She denies any trauma to her lumbar spine or her lower extremities however she does have a history of chronic lower back pain and degenerative disc disease with previous spinal surgeries. Due to her anticoagulated state she is unable to take anti- inflammatories which she reports believed would have helped her pain significantly. She denies any focal neurological deficits, weakness not related to pain, bowel or bladder incontinence or concern for cauda equine. She also reports a low-grade fever this morning and was concerned regarding UTI however she denies any dysuria, hematuria, frequency, bowel or pelvic pain or pressure, flank pain or urinary odor. She is past medical history significant for hypertension, hyperlipidemia, questionable atrial fibrillation, DVT with PE, hypothyroidism, osteoarthritis, degenerative disc disease, and sleep apnea. She is currently on warfarin with her last INR checked last week and was therapeutic at 2.6. - Related Data Home Medications Medication Instructions Recorded Confirmed Atorvastatin Calcium [Lipitor] 5 mg PO HS 12/11/16 06/02/22 Calcium Carbonate [Calcium] 600 mg PO DAILY 12/11/16 06/02/22 Cholecalciferol [Vitamin D3 (25 50 mcg PO DAILY 12/11/16 06/02/22 Mcg = 1000 Iu)] Olmesartan/Hydrochlorothiazide 1 tab PO DAILY 12/11/16 06/02/22 [Benicar Hct 20-12.5 mg Tablet] Levothyroxine Sodium [Synthroid] 75 mcg PO AC-BRKFST 06/02/22 06/02/22 Vit C/E/Zn/Coppr/Lutein/Zeaxan 2 cap PO DAILY 06/02/22 06/02/22 [Preservision Areds 2 Softgel] Warfarin Sodium [Coumadin] 5 mg PO SUMOTUWETHFR@209906/02/22 06/02/22 Warfarin [Coumadin] 7.5 mg PO SA@209906/02/22 06/02/22 Previous Rx's Medication Instructions Recorded Diltiazem Cd [Cardizem CD] 120 mg PO DAILY #30 cap.er.24h 12/19/16 Allergies Allergy/AdvReac Type Severity Reaction Status Date / Time monosodium glutamate [MSG] Allergy Unknown Verified 06/02/22 11:47 Penicillins Allergy Unknown Verified 06/02/22 11:47 Childhood Sulfa (Sulfonamide Allergy Anaphylaxis Verified 06/02/22 11:47 Antibiotics) Review of Systems ROS Statement: Those systems with pertinent positive or pertinent negative responses have been documented in the HPI. ROS Other: All systems not noted in ROS Statement are negative. Past Medical History Past Medical History: Cancer, Hyperlipidemia, Hypertension, Osteoarthritis (OA), Sleep Apnea/CPAP/BIPAP, Thyroid Disorder Additional Past Medical History / Comment(s): obesity, endometrial cancer and she had hysterectomy, osteoporosis History of Any Multi-Drug Resistant Organisms: None Reported Past Surgical History: Back Surgery, Hysterectomy, Joint Replacement Additional Past Surgical History / Comment(s): left knee replacement (2011) Past Psychological History: No Psychological Hx Reported Smoking Status: Never smoker Past Alcohol Use History: Occasional Past Drug Use History: None Reported - Past Family History Father Family Medical History: Myocardial Infarction (SC) Additional Family Medical History / Comment(s): Lung cancer, Lymphoma, Mother Family Medical History: Congestive Heart Failure (CHF) General Exam Limitations: no limitations General appearance: alert, in no apparent distress, obese Head exam: Present: atraumatic, normocephalic, normal inspection Eye exam: Present: normal appearance, PERRL, EOMI. Absent: scleral icterus, conjunctival injection, periorbital swelling Cardiovascular Exam: Present: regular rate, normal rhythm, normal heart sounds. Absent: systolic murmur, diastolic murmur, rubs, gallop GI/Abdominal exam: Present: soft, normal bowel sounds. Absent: distended (rounded), tenderness, guarding, rebound, rigid, pulsatile mass, hernia Rectal exam: Present: deferred Extremities exam: Present: normal inspection. Absent: pedal edema, joint swelling, calf tenderness Back exam: Present: normal inspection Neurological exam: Present: alert, oriented X3, CN II-XII intact, other (Difficulty with straight leg lifts no other lower extremity weakness is noted.) Psychiatric exam: Present: normal affect, normal mood Skin exam: Present: warm, dry, intact, normal color. Absent: rash Course Vital Signs 06/02/22 10:00 Temperature 98.7 F Pulse Rate 88 Respiratory 16 Rate Blood Pressure 151/81 O2 Sat by Pulse 99 Oximetry Medical Decision Making - Medical Decision Making Bilateral groin pain worsened by lifting legs for walking with known d egenerative disc disease suspect lumbar strain; no trauma severe back pain or focal neurological deficits suspect likely gradual inflammation of degenerative disc disease however due to body habitus will check CT of the lumbar spine and difficulty ambulating. Low probability for urinary tract infection however will check urinalysis due to voice concern from patient. Will also check CBC and BMP to evaluate for any infectious or electrolyte abnormalities contributing to symptoms. INR therapeutic, overall labs without significant anomalies. Computed tomography scan of lumbar spine and pelvis without contrast impression shows an interval listhesis noted at the coccyx level; extensive postop changes of the lumbar spine with spinal curvature, degenerative disc disease and multilevel foramen encroachment, scoliosis. Sacral iliac joints show marked arthropathy changes. Due to difficulty in ambulating will page orthopedic spine promotional advertising assistant Dr. Melendze for evaluation of CT imaging. She reports pain levels are stable without movement and denies any analgesic need at this time. Will continue to monitor. She continues to not have any focal neurological deficits. Case Discussed with Dr. Melendez or the spinal surgeon promotional advertising assistant and reports no need for surgical intervention or follow-up at this time. Recommends donut cushion for coccyx support. Will give tylenol #3 starter pack for pain avoiding NSAIDs due to warfarin. Case discussed with Dr. Cheema. - Lab Data Result diagrams: 06/02/22 10:38 06/02/22 10:38 Lab Results 06/02/22 06/02/22 06/02/22 Range/Units 10:38 10:38 10:38 WBC 10.2 (3.8-10.6) k/uL RBC 4.69 (3.80-5.40) m/uL Hgb 14.4 (11.4-16.0) gm/dL Hct 45.4 (34.0-46.0) % MCV 96.9 (80.0-100.0) fL MCH 30.8 (25.0-35.0) pg MCHC 31.8 (31.0-37.0) g/dL RDW 13.1 (11.5-15.5) % Plt Count 238 (150-450) k/uL MPV 7.6 Neutrophils % 83 % Lymphocytes % 9 % Monocytes % 5 % Eosinophils % 1 % Basophils % 1 % Neutrophils # 8.5 H (1.3-7.7) k/uL Lymphocytes # 1.0 (1.0-4.8) k/uL Monocytes # 0.5 (0-1.0) k/uL Eosinophils # 0.1 (0-0.7) k/uL Basophils # 0.1 (0-0.2) k/uL PT 26.0 H (9.0-12.0) sec INR 2.6 H (<1.2) Sodium 136 L (137-145) mmol/L Potassium 4.8 (3.5-5.1) mmol/L Chloride 106 (98-107) mmol/L Carbon Dioxide 27 (22-30) mmol/L Anion Gap 3 mmol/L BUN 10 (7-17) mg/dL Creatinine 0.63 (0.52-1.04) mg/dL Est GFR (CKD-EPI)AfAm >90 (>60 ml/min/1.73 sqM) Est GFR (CKD-EPI)NonAf 84 (>60 ml/min/1.73 sqM) Glucose 138 H (74-99) mg/dL Calcium 8.7 (8.4-10.2) mg/dL Urine Color Urine Appearance (Clear) Urine pH (5.0-8.0) Ur Specific [place] (1.001-1.035) Urine Protein (Negative) Urine Glucose (UA) (Negative) Urine Ketones (Negative) Urine Blood (Negative) Urine Nitrite (Negative) Urine Bilirubin (Negative) Urine Urobilinogen (<2.0) mg/dL Ur Leukocyte Esterase (Negative) Urine WBC (0-5) /hpf Ur Squamous Epith Cells (0-4) /hpf 06/02/22 Range/Units 12:08 WBC (3.8-10.6) k/uL RBC (3.80-5.40) m/uL Hgb (11.4-16.0) gm/dL Hct (34.0-46.0) % MCV (80.0-100.0) fL MCH (25.0-35.0) pg MCHC (31.0-37.0) g/dL RDW (11.5-15.5) % Plt Count (150-450) k/uL MPV Neutrophils % % Lymphocytes % % Monocytes % % Eosinophils % % Basophils % % Neutrophils # (1.3-7.7) k/uL Lymphocytes # (1.0-4.8) k/uL Monocytes # (0-1.0) k/uL Eosinophils # (0-0.7) k/uL Basophils # (0-0.2) k/uL PT (9.0-12.0) sec INR (<1.2) Sodium (137-145) mmol/L Potassium (3.5-5.1) mmol/L Chloride (98-107) mmol/L Carbon Dioxide (22-30) mmol/L Anion Gap mmol/L BUN (7-17) mg/dL Creatinine (0.52-1.04) mg/dL Est GFR (CKD-EPI)AfAm (>60 ml/min/1.73 sqM) Est GFR (CKD-EPI)NonAf (>60 ml/min/1.73 sqM) Glucose (74-99) mg/dL Calcium (8.4-10.2) mg/dL Urine Color Light Yellow Urine Appearance Clear (Clear) Urine pH 7.5 (5.0-8.0) Ur Specific [place] 1.006 (1.001-1.035) Urine Protein Negative (Negative) Urine Glucose (UA) Negative (Negative) Urine Ketones Negative (Negative) Urine Blood Negative (Negative) Urine Nitrite Negative (Negative) Urine Bilirubin Negative (Negative) Urine Urobilinogen <2.0 (<2.0) mg/dL Ur Leukocyte Esterase Trace H (Negative) Urine WBC 5 (0-5) /hpf Ur Squamous Epith Cells <1 (0-4) /hpf Disposition Clinical Impression: Subluxation of coccyx Disposition: HOME SELF-CARE Condition: Stable Additional Instructions: Please utilize Tylenol 3 starter pack for pain as needed. Utilize inflatable seek cushion for protection of coccyx region. Range of motion as tolerated and encourage. Avoid prolonged bed rest and prolonged sitting when possible. Please follow-up with your primary care provider for further evaluation and treatment of lower back pain and groin pain with prior trouble ambulating. Please return to the Emergency Department if symptoms worsen or any other concerns. Is patient prescribed a controlled substance at d/c from ED?: No Referrals: Mae Pena MD [Primary Care Provider] - 1-2 days Time of Disposition: 14:54
[2022-06-02 10:51] LABS: Basophils # (A) 0.1 k/uL (0-0.2); Basophils % (A) 1 %; Eosinophils # (A) 0.1 k/uL (0-0.7); Eosinophils % (A) 1 %; HCT 45.4 % (34.0-46.0); HGB 14.4 gm/dL (11.4-16.0); Lymphocytes % (A) 9 %; MCH 30.8 pg (25.0-35.0); MCHC 31.8 g/dL (31.0-37.0); MCV 96.9 fL (80.0-100.0); Mean Platelet Volume 7.6; Monocytes # (A) 0.5 k/uL (0-1.0); Monocytes % (A) 5 %; Neutrophils # (A) 8.5 k/uL (1.3-7.7); Neutrophils % (A) 83 %; Platelet Count 238 k/uL (150-450); RBC 4.69 m/uL (3.80-5.40); RDW 13.1 % (11.5-15.5); WBC 10.2 k/uL (3.8-10.6)
[2022-06-02 11:03] LABS: African American GFR (CKD) >90 (>60 ml/min/1.73 sqM); Anion Gap 3 mmol/L; Blood Urea Nitrogen 10 mg/dL (7-17); Calcium 8.7 mg/dL (8.4-10.2); Carbon Dioxide 27 mmol/L (22-30); Chloride 106 mmol/L (98-107); Glucose 138 mg/dL (74-99); Non-African American GFR(CKD) 84 (>60 ml/min/1.73 sqM); Sodium 136 mmol/L (137-145)
[2022-06-02 11:04] LABS: Potassium 4.8 mmol/L (3.5-5.1)
[2022-06-02 11:39] LABS: INR 2.6 (<1.2)
--- NOTE | 2022-06-02 11:54 | CT ---
EXAMINATION TYPE: CT lumbar spine wo con, CT pelvis wo con DATE OF EXAM: 06/02/2022 COMPARISON: CT 12/13/2016 abdomen pelvis HISTORY: Bilateral groin and leg pain CT DLP: 1497.4 (accession [id number]), 1032 (accession [id number]) mGycm Automated exposure control for dose reduction was used. DLP 2529.[address] of the lumbar spine and pelvis was performed. Bone and soft tissue window settings are submitted as well as coronal and sagittal reconstructions. FINDINGS: CT pelvis shows marked arthropathy changes at the sacroiliac joints, there is hypertrophic change, va cuum phenomenon, subchondral sclerosis greater on the left, findings could be related to stress solis e. Patient is morbidly obese. There is no evident fracture or dislocation. Arthropathy is also presen t at the pubic symphysis, there is subchondral geode formation, sclerosis, bone mineralization and al ignment maintained. Hip joints are symmetric. Sacrum shows some minimal listhesis posteriorly of the coccyx which is thought to be an interval finding. No pelvic adenopathy or free fluid. Urinary bladder within normal limits. Uterus and adnexal structur es are not seen. Lumbar spine CT: Patient shows posterior lumbosacral fusion at L1-S1 there is loss of disc height at intervertebral levels, multilevel spondylosis. There is a marked levoscoliosis centered at L2-3. Para spinal graft material is in place. Multilevel laminectomies present posteriorly. There is artifact du e to patient's transpedicular screw asymmetric. Costovertebral angles at T11 show osteoarthritic kaufman ge. There is multilevel facet arthropathy change. No evident spinal stenosis. Lumbar vertebral bodies show preserved height. Bone mineralization is reduced. L1-L2: Suspect there is bilateral foraminal encroachment greater on the right. No significant spinal stenosis. L2-L3: Extension endplate disc complex causes anterior mass effect on the thecal sac. Circumferential extension endplate disc complex causes foraminal encroachment on the right which may be contributed by the scoliosis. L3-L4: Circumferential extension endplate disc complex causes foraminal encroachment on the right, po sterior extension endplate disc complex likely causes mild anterior mass effect on the thecal sac. L4-L5: Circumferential extension of endplate disc complex causes bilateral foraminal encroachment. No significant spinal stenosis. Posterior extension endplate disc complex likely causes anterior mass e ffect on the thecal sac. L5-S1: Circumferential extension of endplate disc complex results in bilateral foraminal encroachment . Posterior extension endplate disc complex likely causes anterior mass effect on the thecal sac. The right-sided S1 transpedicular screw breaches the anterior cortex. IMPRESSION: There is an interval listhesis noted at the coccyx level, correlate for any history of trauma. Extens sana postop changes in the lumbar spine with spinal curvature, degenerative disc disease and multileve l foraminal encroachment, scoliosis. Sacroiliac joints show marked arthropathy change. Additional fi ndings above.
[2022-06-02 12:27] LABS: Appearance,Urine Clear (Clear); Bilirubin,Urine Negative (Negative); Blood,Urine Negative (Negative); Color,Urine Light Yellow; Glucose,Urine (UA) Negative (Negative); Ketones,Urine Negative (Negative); Leukocyte Esterase,Urine Trace (Negative); Nitrite,Urine Negative (Negative); PH, Urine 7.5 (5.0-8.0); Protein,Urine Negative (Negative); Specific Gravity,Urine 1.006 (1.001-1.035); Squamous Epithelial Cell,Urine <1 /hpf (0-4); Urobilinogen,Urine <2.0 mg/dL (<2.0); WBC,Urine 5 /hpf (0-5)
[2022-06-02] MEDS ORDERED: ACET/COD 300 MG/30 MG STARTER PACK 6 TAB BTL PO STA (14:07)
== END 2022-06-02 15:37 | disposition home or self-care (01) ==
LOC: EC 09:58
DX: M43.5X8 Other recurrent vertebral dislocation, sacral and sacrococcygeal region (principal); I10 Essential (primary) hypertension; E78.5 Hyperlipidemia, unspecified; M19.90 Unspecified osteoarthritis, unspecified site; E07.9 Disorder of thyroid, unspecified; Z88.0 Allergy status to penicillin; Z88.2 Allergy status to sulfonamides; Z88.8 Allergy status to other drugs, medicaments and biological substances; Z79.899 Other long term (current) drug therapy; Z79.890 Hormone replacement therapy
CPT/HCPCS: 36415; 72131; 72192; 80048; 81001; 85025; 85610; 99284

== ENCOUNTER 2023-03-25 09:30 | Day surgery (SDC) | payer MEDICARE ==
[~2023-03-25 09:30] MED LIST: LACTATED RINGERS 1,000 ML IV SCH; LIDOCAINE 1% (10MG/ML) FOR IV START INTRADERMA PRN
[2023-03-25 11:24] VITALS: TEMP 97.5
[2023-03-25] MEDS ORDERED: PROPOFOL 10 MG/ML 20 ML VIAL IV ONE (12:41)
--- NOTE | 2023-03-25 13:11 | P.PCN ---
Date of Procedure: 03/25/23 Procedure(s) Performed: BRIEF HISTORY: Patient is a 83-year-old pleasant white female scheduled for an elective colonoscopy as a part of value should prior history of colon polyps. Her last colonoscopy was 7 years ago. PROCEDURE PERFORMED: Colonoscopy snare polypectomy. PREOPERATIVE DIAGNOSIS: History Of colon polyps. IV sedation per Anesthesia. PROCEDURE: After informed consent was obtained, the patient, was brought into the endoscopy unit. IV sedation was administered by Anesthesia under continuous monitoring. Digital rectal examination was normal. Initially the Olympus CF-160 flexible video colonoscope was then inserted in the rectum, gradually advanced into the cecum without any difficulty. Careful examination was performed as the scope was gradually being withdrawn. Ileocecal valve and the appendiceal orifice were visualized and appeared normal. Prep was excellent. Mucosa of the cecum, 3 polyps measuring between 1 cm, 1.2 cm and 1.5 cm all of which were removed by snare polypectomy. In the ascending colon there was a 7 mm polyp removed by snare polypectomy. Rest of the ascending colon, transverse colon, appeared normal. The descending colon there was a 1 cm 2 and 2 cm polyp that was removed by snare polypectomy. Rest of the descending colon, sigmoid colon, and rectum appeared normal. Retroflexion was performed in the rectum and no lesions were seen. The patient tolerated the procedure well. IMPRESSION: 1 cm, 1.5 cm and 1.2 cm polyp status post polypectomy 7 mm ascending colon polyp status post polypectomy 1 cm 2 and 2 cm descending colon polyp status post polypectomy RECOMMENDATIONS: Findings of this examination were discussed with the patient as her family. She was advised to follow with the biopsy results. If the biopsies adenoma she can have a repeat colonoscopy in 3 years..
[2023-03-25 13:57] VITALS: RESP 16
[2023-03-25 13:59] VITALS: BP 118/61; PULSE 69
== END 2023-03-25 14:05 | disposition home or self-care (01) ==
LOC: ORWHC2ENDO 09:30
PROVIDERS: ATTEND Internal Medicine Gastroenterology
DX: Z12.11 Encounter for screening for malignant neoplasm of colon (principal); D12.0 Benign neoplasm of cecum; D12.2 Benign neoplasm of ascending colon; D12.4 Benign neoplasm of descending colon; I10 Essential (primary) hypertension; E78.5 Hyperlipidemia, unspecified; G47.33 Obstructive sleep apnea (adult) (pediatric); E03.9 Hypothyroidism, unspecified; Z87.09 Personal history of other diseases of the respiratory system; Z86.010 Personal history of colon polyps; Z79.899 Other long term (current) drug therapy
CPT/HCPCS: 45385; J2704; 88305

== ENCOUNTER → 2023-08-22 | Outpatient (CLI) | payer MEDICARE ==
--- NOTE | 2023-08-22 15:51 | MM ---
Reason for Exam: Screening (asymptomatic). Last mammogram was performed 1 year(s) and 4 month(s) ago. Patient History: Menarche at age 13. First Full-Term at age 23. Left ovary removed at age 64. Right ovary removed at age 64. Hysterectomy at age 64. Postmenopausal. Endometrial cancer, age 64. Excisional Biopsy on the Left side. 1996, Excisional Biopsy on the Left side. 09/27/1997, Benign Excisional Biopsy on the left side. 02/07/2008, Cancelled Left US Needle Biopsy on the left side. Maternal grandmother had breast cancer, age 80. Risk Values: Sweta 5 year model risk: 2.1%. NCI Lifetime model risk: 2.8%. Prior Study Comparison: 02/28/2019 Bilateral Screening Mammogram, [facility]. 06/17/2020 Bilateral Screening Mammogram, [facility]. 04/15/2022 Bilateral MG 3D screening mammo w/cad, [facility]. Tissue Density: The breast tissue is heterogeneously dense. This may lower the sensitivity of mammography. Findings: Analyzed By CAD. No new suspicious mass within left breast. Benign calcifications within both breasts. No suspicious group of calcifications within either breast. Focal asymmetry demonstrated within the right breast at 12:00 at anterior middle depth. Overall Assessment: Incomplete: need additional imaging evaluation, BI-RAD 0 Management: Diagnostic Mammogram of the right breast. A clinical breast exam by your physician is recommended on an annual basis and results should be correlated with mammographic findings. [facility] will attempt to contact patient to return for supplemental views and ultrasound if indicated. Note on Sweta scores and lifetime risk: 1. A Sweta score greater than 3% is considered moderate risk. If this is the case, consider specialist referral to assess eligibility for a risk reducing agent. If overall lifetime risk for the development of breast cancer is 20% or higher, the patient may qualify for future screening with alternating mammogram and breast MRI. Electronically signed and approved by: Johny Perkins D.O.
== END | disposition home or self-care (01) ==
LOC: RADMAMWWP 15:19
PROVIDERS: ATTEND Internal Medicine
DX: Z12.31 Encounter for screening mammogram for malignant neoplasm of breast (principal); Z78.0 Asymptomatic menopausal state; Z80.3 Family history of malignant neoplasm of breast
CPT/HCPCS: 77063; 77067

== ENCOUNTER → 2023-08-24 | Outpatient (CLI) | payer MEDICARE ==
--- NOTE | 2023-08-24 14:04 | MM ---
Reason for Exam: Follow-up at short interval from prior study. Last screening mammogram was performed less than 1 month ago. Patient History: Menarche at age 13. First Full-Term at age 23. Left ovary removed at age 64. Right ovary removed at age 64. Hysterectomy at age 64. Postmenopausal. Endometrial cancer, age 64. Excisional Biopsy on the Left side. 1996, Excisional Biopsy on the Left side. 09/27/1997, Benign Excisional Biopsy on the left side. 02/07/2008, Cancelled Left US Needle Biopsy on the left side. Maternal grandmother had breast cancer, age 80. Risk Values: Sweta 5 year model risk: 2.1%. NCI Lifetime model risk: 2.8%. Tissue Density: Right: The breast tissue is heterogeneously dense. This may lower the sensitivity of mammography. Findings: Analyzed By CAD. No definite persistent nodule right breast. Precautionary six-month follow-up is advised however. Overall Assessment: Probably benign, BI-RAD 3 Management: Diagnostic Mammogram of the right breast in 6 months. . Results were given to the patient verbally at the time of exam. Patient should continue monthly self-breast exams. A clinical breast exam by your physician is recommended on an annual basis. This exam should not preclude additional follow-up of suspicious palpable abnormalities. Note on Sweta scores and lifetime risk: 1. A Sweta score greater than 3% is considered moderate risk. If this is the case, consider specialist referral to assess eligibility for a risk reducing agent. 2. If overall lifetime risk for the development of breast cancer is 20% or higher, the patient may qualify for future screening with alternating mammogram and breast MRI. Electronically signed and approved by: Vinny Flores M.D. Radiologis
== END | disposition home or self-care (01) ==
LOC: RADMAMWWP 13:24
PROVIDERS: ATTEND Internal Medicine
DX: R92.331 Mammographic heterogeneous density, right breast (principal); Z78.0 Asymptomatic menopausal state; Z80.3 Family history of malignant neoplasm of breast
CPT/HCPCS: 77065; G0279; 77061

== ENCOUNTER → 2024-02-29 | Outpatient (CLI) | payer MEDICARE ==
--- NOTE | 2024-02-29 13:47 | MM ---
Reason for Exam: Follow-up at short interval from prior study. Last screening mammogram was performed 6 month(s) ago. Patient History: Menarche at age 13. First Full-Term at age 23. Left ovary removed at age 64. Right ovary removed at age 64. Hysterectomy at age 64. Postmenopausal. Endometrial cancer, age 64. Excisional Biopsy on the Left side. 1996, Excisional Biopsy on the Left side. 09/27/1997, Benign Excisional Biopsy on the left side. 02/07/2008, Cancelled Left US Needle Biopsy on the left side. Maternal grandmother had breast cancer, age 80. Risk Values: Sweta 5 year model risk: 2.0%. NCI Lifetime model risk: 2.5%. Prior Study Comparison: 04/15/2022 Bilateral MG 3D screening mammo w/cad, [facility]. 08/22/2023 Bilateral MG 3D screening mammo w/cad, [facility]. 08/24/2023 Right MG 3D work up w/cad RT, [facility]. Tissue Density: Right: There are scattered areas of fibroglandular density. Findings: Analyzed By CAD. The pattern is stable. Multiple linear and vascular calcifications are present. The previous focal asymmetric density in the anterior right breast is not evident on the current examination. No suspicious groups of microcalcifications, spiculated or lobular masses, architectural distortion or other secondary signs of malignancy are mammographically apparent. Overall Assessment: Benign, BI-RAD 2 Management: Screening Mammogram of both breasts in 6 months. A negative mammogram report should not preclude additional follow up of suspicious palpable abnormalities. Patient should continue monthly self breast exam. A clinical breast exam by your physician is recommended on an annual basis and results should be correlated with mammographic findings. Note on Sweta scores and lifetime risk: 1. A Sweta score greater than 3% is considered moderate risk. If this is the case, consider specialist referral to assess eligibility for a risk reducing agent. 2. If overall lifetime risk for the development of breast cancer is 20% or higher, the patient may qualify for future screening with alternating mammogram and breast MRI. Electronically signed and approved by: Vivek Oreilly D.O. Radiologis
== END | disposition home or self-care (01) ==
LOC: RADMAMWWP 12:49
PROVIDERS: ATTEND Internal Medicine
DX: R92.8 Other abnormal and inconclusive findings on diagnostic imaging of breast (principal); Z78.0 Asymptomatic menopausal state; Z80.3 Family history of malignant neoplasm of breast
CPT/HCPCS: 77065; G0279; 77061